=== PATIENT | male | born 1990 | race American Indian/Alaskan Native ===

== ENCOUNTER 2023-07-25 13:30 | Outpatient (CLI) | payer MEDICAID | END 2023-07-25 13:45 | disposition home or self-care (01) | LOC: LAB.N 13:30 | PROVIDERS: ATTEND Family Medicine | DX: Z20.1 Contact with and (suspected) exposure to tuberculosis (principal) | CPT/HCPCS: 81599; 86480 ==

== ENCOUNTER 2023-08-12 15:59 | Outpatient (CLI) | payer MEDICAID ==
--- NOTE | 2023-08-12 17:19 | XRAY Report ---
PROCEDURE: Chest 2 View X-Ray INDICATIONS: POSSIBLE TB TECHNIQUE: 2 views of the chest were acquired. COMPARISON: None. FINDINGS: Surgical changes and devices: None. Lungs and pleura: No pleural effusions or pneumothorax. Lungs are clear. Mediastinum: Mediastinal contours appear normal. No adenopathy demonstrated. Heart size is normal. Bones and chest wall: No suspicious bony lesions. Overlying soft tissues appear unremarkable. IMPRESSION: No acute cardiopulmonary process. No adenopathy demonstrated. Reviewed by: Raudel River MD on 08/12/2023 5:18 PM PST Approved by: Raudel River MD on 08/12/2023 5:18 PM PST Station ID: [id number]
== END 2023-08-12 16:00 | disposition home or self-care (01) ==
LOC: DI 15:59
PROVIDERS: ATTEND Emergency Medicine
DX: Z11.1 Encounter for screening for respiratory tuberculosis (principal)

== ENCOUNTER 2025-06-12 16:56 | Inpatient (IN) ==
[2025-06-12] MEDS: HYDROmorphone 1 MG/ML CARPUJECT IVP STA (18:13)
[2025-06-12 18:14] LABS: HCT - HEMATOCRIT 42.6 % (42.0-52.0); HGB - HEMOGLOBIN 14.4 g/dL (14.0-18.0); MEAN PLATELET VOLUME 10.4 fL (7.4-11.4); NRBC ABSOLUTE COUNT (AUTO) 0.00 x10^3/uL; NUCLEATED RED BLOOD CELLS AUTO 0.0 /100WBC; PLT - PLATELET COUNT 292 10^3/uL (130-450); RED CELL DISTRIBUTION WIDTH 11.4 % (12.0-15.0)
--- NOTE | 2025-06-12 18:16 | ED Physician Documentation ---
History of Present Illness Stated complaint Stated Complaint: Chief complaint Chief Complaint: Wound History obtained from History obtained from: Patient History of Present Illness Pain level max: 7 Pain level now: 7 Additonal information Additional information: Patient is a 34-year-old male who presents to the emergency department complaint of swelling to the right side of the scrotum. He states it started as a small pimple a few days ago and since has progressed into significant swelling on the right side of the scrotum, now with 2 distinct indurated areas. No current drainage. Nothing makes it better or worse. He states he went to the walk-in clinic and was started on cephalexin but is not improving. He is also on metfor min, history of diabetes. Review of Systems Constitutional Denies: Fever or Chills Gastrointestinal Denies: Abdominal pain or Vomiting Genitourinary Denies: Painful urination Musculoskeletal Denies: Back pain Meds/Allgy Home Medications Ambulatory Orders Medication Instructions Recorded Confirmed cephalexin 500 mg capsule 500 mg PO TID 7 days #21 cap s 06/10/25 06/12/25 metformin 1,000 mg tablet 1,000 mg PO DAILY 06/12/25 0 06/12/25 Allergies Allergies Allergy/AdvReac Type Severity Reaction Status Date / Time Anesthesia Allergy Unknown "Muscle Uncoded 06/12/25 17:01 Spasms" PFSH Active Problems All Active Problems (Updated 06/12/25 @ 17:55 by Rickie Turner RN) Cellulitis (Acute) Medical History Medical History (Updated 06/12/25 @ 17:55 by Rickie Turner RN) DM2 (diabetes mellitus, type 2) Surgical History Surgical History (Updated 06/12/25 @ 17:55 by Rickie Turner RN) Hx of cholecystectomy Social History Social History (Updated 06/12/25 @ 17:55 by Rickie Turner RN) Smoking Status: Current every day smoker Number of Years Smoked: 3 How many cigarettes a day do you smoke? (20 cigarettes=1 Pk): 2 Do you dip or chew tobacco?: No Do you vape?: No Living arrangement: At home Level: Independent Do you feel safe in your home environment?: Yes History of physical, verbal, emotional, or financial abuse?: No ETOH Use: None Substance Use: cannabis (any form) POLST Patient has POLST: No Exam Exam Vital Signs: Vital Signs x48h Temp Pulse Resp BP Pulse Ox 06/12/25 18:41 91 16 174/93 H 96 06/12/25 17:52 95 16 174/93 H 98 06/12/25 16:59 36.8 C 110 H 18 139/89 H 97 Constitutional normal general appearance and no apparent distress HENMT oropharynx normal moist mucous membranes Eyes PERRL Neck/C-Spine visual inspection normal Respiratory breath sounds equal bilaterally, normal respiratory effort and clear to auscultation bilaterally Cardiovascular normal heart rate noted and regular rhythm noted Gastrointestinal abdomen normal to inspection, abdomen soft to palpation, nontender to palpation and nondistended Genitourinary no CVA tenderness Tenderness to palpation over the right hemiscrotum, swelling, erythema, induration approximately 4 x 7 cm and 3 x 3 cm. No crepitus. No erythema on the leg. Penile shaft is unaffected. Extremities no edema Neurology speech normal Psychiatry mental status grossly normal and oriented x3 Skin skin color normal Results Vitals Vitals: Vital Signs - 24 hr 06/12/25 16:59 06/12/25 17:52 06/12/25 18:13 Temperature 36.8 C Temperature Source Temporal Artery Scan Pulse Rate 110 H 95 Respiratory Rate 18 16 Blood Pressure 139/89 H 174/93 H O2 Saturation 97 98 O2 Source Room air Room air Pain Intensity 10 10 10 06/12/25 18:39 06/12/25 18:41 Temperature Temperature Source Pulse Rate 91 Respiratory Rate 16 Blood Pressure 174/93 H O2 Saturation 96 O2 Source Room air Pain Intensity 4 4 Oxygen O2 Source Room air Labs Labs: Laboratory Tests 06/12/25 18:05 WBC 17.7 H RBC 5.11 Hgb 14.4 Hct 42.6 MCV 83.4 MCH 28.2 MCHC 33.8 RDW 11.4 L Plt Count 292 MPV 10.4 Neut # (Auto) 15.4 H Lymph # (Auto) 1.1 L [place] # (Auto) 1.1 H Eos # (Auto) 0.0 Baso # (Auto) 0.0 Absolute Nucleated RBC 0.00 Nucleated RBC % 0.0 Sodium 129 L Potassium 4.0 Chloride 93 L Carbon Dioxide 25 Anion Gap 11.0 BUN 11 Creatinine 0.8 Estimated GFR (MDRD) 109 Glucose 371 H Calcium 9.3 Total Bilirubin 0.6 AST 8 L ALT 10 Alkaline Phosphatase 93 Total Protein 7.7 Albumin 3.9 Globulin 3.8 Albumin/Globulin Ratio 1.0 PD Medical Decision Making ED course Complexity details: reviewed results, re-evaluated patient, considered differential and d/w patient ED course: 34-year-old male with scrotal swelling, induration and erythema. CT scan and ultrasound ordered. Concern for possible necrotizing fasciitis/Meg's gangrene. Patient is signed out to Dr. Ardon. Patient was started on Rocephin and vancomycin. Given Dilaudid for pain. See her note for further care. This document was made in part using voice recognition software. While efforts are made to proofread this document, sound alike and grammatical errors may occur. Discharge Plan Discharge Prescriptions: No Action metformin 1,000 mg tablet 1,000 mg PO DAILY cephalexin 500 mg capsule 500 mg PO TID 7 Days Qty: 21 0RF Print Language: Comoran Stand Alone Forms: PCP List
[2025-06-12 18:32] LABS: ALT ALANINE AMINOTRANSFERASE 10.0 IU/L (10-60); AST ASPARTATE AMINOTRANSFERASE 8.0 IU/L (10-42); BUN - BLOOD UREA NITROGEN 11.0 mg/dL (6-20); CARBON DIOXIDE - CO2 25.0 mmol/L (21-32); CREATININE 0.8 mg/dL (0.6-1.3); GFR - MDRD 109.0 (>89)
[2025-06-12] MEDS: SODIUM CHLORIDE 0.9% 1,000 ML IV STA (18:39)
--- NOTE | 2025-06-12 19:28 | CT Report ---
PROCEDURE: CT Pelvis W INDICATIONS: scrotal swelling, pain CONTRAST: Omni 300 100mL TECHNIQUE: After the administration of intravenous contrast, a CT scan of the pelvis was performed. Images were recorded and evaluated at appropriate window settings. Reformats: axial MIP of the chest, coronal and sagittal. For radiation dose reduction, the following was used: automated exposure control, adjustment of mA and/or kV according to patient size. COMPARISON: None FINDINGS: Image quality: Diagnostic. Bowel and peritoneum: No bowel distension. No pathologic free fluid. Vessels: No infrarenal aortic aneurysm. Reproductive organs: Unremarkable. Bladder: There is mild circumferential urinary bladder wall thickening greater than expected for degree of urinary bladder distention. Pelvic lymph nodes: No pelvic adenopathy by size criteria. Bones: No aggressive osseous abnormality. Other: Very small fat-containing left inguinal hernia without acute inflammation. Moderate-sized bilateral hydroceles. Mild scrotal soft tissue swelling. No organized fluid collection seen. IMPRESSION: Circumferential urinary bladder wall thickening greater than expected for degree of distention. Findings may represent possible cystitis. Recommend clinical and laboratory correlation. Moderate bilateral hydroceles and scrotal soft tissue swelling. No organized fluid collection or soft tissue gas noted. Reviewed by: Shyam Abernathy MD on 06/12/2025 7:26 PM PDT Approved by: Shyam Abernathy MD on 06/12/2025 7:26 PM PDT Station ID: [id number]
[2025-06-12] MEDS: PIPERACILLIN/TAZOBACTAM 4.5 GM in SODIUM CHLORIDE 0.9% MINIBAG 100 ML IV STA (19:37)
[2025-06-12] MEDS ORDERED: VANCOMYCIN 1 GM VIAL ONE (20:12)
[2025-06-12] MEDS: VANCOMYCIN INJ 1.5 GM in SODIUM CHLORIDE 0.9% 500 ML IV ONE (20:33)
[2025-06-12] MEDS: MORPHINE 2 MG/ML CARPUJECT IVP STA (20:58)
--- NOTE | 2025-06-12 21:01 | Ultrasound Report ---
PROCEDURE: US Testicle w/Doppler INDICATIONS: R scrotal swelling TECHNIQUE: Real-time scanning was performed of the scrotum and testicles, with image documentation. Color and pulse Doppler interrogation was performed of both testicles. COMPARISON: None. FINDINGS: Right: Testicle is normal in size at 5.0 x 2.5 x 3.2 cm, and homogenous in echotexture. Epididymis is normal in overall size and morphology. No hydrocele. No varicoceles. Overlying scrotal skin is normal in thickness. Left: Testicle is normal in size at 4.5 x 2.6 x 3.2 cm, and homogeneous in echotexture. Epididymis is normal in overall size and morphology. No hydrocele. No varicoceles. Overlying scrotal skin is normal in thickness. Doppler: Color and pulse Doppler demonstrate normal and symmetric arterial flow in both testicles. Miscellaneous: Area of concern in the posterior right scrotum demonstrates a 1.7 x 3.4 x 4.3 cm focus of heterogeneous echogenicity. Mild appearance of increased vascularity. IMPRESSION: Focus of heterogeneous echogenicity at the area of palpable concern as above.This may represent phlegmon/abscess. However, it is overall nonspecific in etiology such as hematoma cannot be excluded. Clinical follow-up to document resolution and exclude presence of underlying mass is recommended. Reviewed by: Lesvia Parekh MD on 06/12/2025 9:00 PM PDT Approved by: Lesvia Parekh MD on 06/12/2025 9:00 PM PDT Station ID: [id number]
[2025-06-12] MEDS ORDERED: ONDANSETRON 4 MG/2 ML VIAL IVP PRN (22:27)
--- NOTE | 2025-06-12 22:32 | ED Physician Documentation ---
ED Addendum Addendum Addendum: Patient endorsed to me by Dr. stephens at 7pm shift change. He has R scrotal abscess that Dr. Pimentel will drain in AM. no beds available so he will board in the ED. plan to endorse to incoming daytime ed md at 7am shift change Discharge Plan Discharge Prescriptions: No Action metformin 1,000 mg tablet 1,000 mg PO DAILY cephalexin 500 mg capsule 500 mg PO TID 7 Days Qty: 21 0RF Print Language: Croatian Stand Alone Forms: PCP List
[2025-06-12] MEDS: MORPHINE 2 MG/ML CARPUJECT IVP PRN (23:08)
[2025-06-12] MEDS: ACETAMINOPHEN 325 MG TABLET PO STA (23:11)
[2025-06-12] MEDS: INSULIN REGULAR, HUMAN 300 UNIT/3 ML PEN SUBQ STA (23:14)
[2025-06-12] MEDS: INSULIN REGULAR, HUMAN 300 UNIT/3 ML PEN IVP STA (23:19)
[2025-06-12] MEDS: LORazepam 2 MG/ML VIAL IVP STA (23:26)
[2025-06-13 06:07] LABS: HCT - HEMATOCRIT 39.3 % (42.0-52.0); HGB - HEMOGLOBIN 13.4 g/dL (14.0-18.0); MEAN PLATELET VOLUME 10.5 fL (7.4-11.4); PLT - PLATELET COUNT 278 10^3/uL (130-450); RED CELL DISTRIBUTION WIDTH 11.4 % (12.0-15.0)
[2025-06-13 06:09] LABS: SLIDE REVIEW? Indicated
[2025-06-13 06:10] LABS: ABNORMAL LYMPHS % (MANUAL) 0 %; BASOPHILS # (MANUAL) 0.0 10^3/uL (0-0.1)
[2025-06-13 06:37] LABS: BUN - BLOOD UREA NITROGEN 10.0 mg/dL (6-20); CARBON DIOXIDE - CO2 25.0 mmol/L (21-32); CREATININE 0.8 mg/dL (0.6-1.3); GFR - MDRD 109.0 (>89)
[2025-06-13 07:04] LABS: BAND NEUTROPHILS % (MANUAL) 3 %; EOSINOPHILS # (MANUAL) 0.4 10^3/uL (0-0.7); LYMPHOCYTES # (MANUAL) 1.9 10^3/uL (1.5-3.5); LYMPHOCYTES % (MANUAL) 7 %; MONOCYTES # (MANUAL) 1.5 10^3/uL (0.0-1.0); NEUTROPHILS # (MANUAL) 15.4 10^3/uL (1.5-6.6); RBC MORPHOLOGY (MULTIPLE) 1+ ANISOCYTOSIS (NORMAL); REACTIVE LYMPHS % (MANUAL) 3 %
[2025-06-13 07:05] LABS: PLATELET ESTIMATE, MANUAL NORMAL (130-450,000) (NORMAL)
--- NOTE | 2025-06-13 07:12 | ED Physician Documentation ---
ED Addendum Addendum Addendum: Patient was handed off to me at [address] Ardon. Briefly, this patient is boarding in the ER awaiting urology evaluation, as well as likely I&D with urology today for a right scrotal abscess. Shortly after my shift began, urology did come by and evaluate this patient, and elected to perform this procedure today. He remained in the ER until he was transferred to preoperative area. Patient required no further interventions in the ER during my care for him. Remained stable. Discharge Plan Discharge Patient Disposition: ED Transfer to [facility] Condition: Stable Clinical Impression: Scrotal abscess Interventions: ED Admission Assessment Last Done: 06/13/25 10:02
--- NOTE | 2025-06-13 07:44 | HISTORY & PHYSICAL EXAMINATION ---
Chief Complaint Chief Complaint Chief Complaint: scrotal abscess History of Present Illness Admitted From Admitted From:: ER History Obtained From Records Reviewed: patient, EMR History obtained from: patient Exam Limitations: none History of Present Illness HPI Comment/Other: Erik is a 34yo M with type 2 DM- poorly controlled- who presented to the ER 06/12/25 with worsening scrotal pain and swelling. He first noted a "pimple" on his scrotum a week ago and popped it. The swelling worsened and he went to walkin 06/10/25 and was started on keflex. Unfortunately the swelling worsened. He has had subjective fevers at home. Colonoscopy Questionnaire In the last 30 days have you experienced these symptoms? PFSH Active Problems All Active Problems (Updated 06/13/25 @ 08:18 by Radhames Pimentel MD) Scrotal abscess (Acute) Cellulitis (Acute) Medical History Medical History (Updated 06/13/25 @ 08:18 by Radhames Pimentel MD) DM2 (diabetes mellitus, type 2) Surgical History Surgical History (Updated 06/12/25 @ 17:55 by Rickie Turner RN) Hx of cholecystectomy Social History Social History (Updated 06/12/25 @ 17:55 by Rickie Turner RN) Smoking Status: Current every day smoker Number of Years Smoked: 3 How many cigarettes a day do you smoke? (20 cigarettes=1 Pk): 2 Do you dip or chew tobacco?: No Do you vape?: No Living arrangement: At home Level: Independent Do you feel safe in your home environment?: Yes History of physical, verbal, emotional, or financial abuse?: No ETOH Use: None Substance Use: cannabis (any form) POLST Patient has POLST: No Meds/Allgy Home Medications Ambulatory Orders Medication Instructions Recorded Confirmed cephalexin 500 mg capsule 500 mg PO TID 7 days #21 cap s 06/10/25 06/12/25 metformin 1,000 mg tablet 1,000 mg PO DAILY 06/12/25 0 06/12/25 Allergies Allergies Allergy/AdvReac Type Severity Reaction Status Date / Time Anesthesia Allergy Unknown "Muscle Uncoded 06/12/25 17:01 Spasms" Results Lab Results Lab results reviewed: Yes 06/13/25 05:49 06/13/25 05:49 Other Lab Results: Lab Results x24hrs 06/12/25 Range/Units 18:05 WBC 17.7 H (4.8-10.8) x10^3/uL RBC 5.11 (4.70-6.10) 10^6/uL Hgb 14.4 (14.0-18.0) g/dL Hct 42.6 (42.0-52.0) % MCV 83.4 (80.0-94.0) fL MCH 28.2 (27.0-31.0) pg MCHC 33.8 (32.0-36.0) g/dL RDW 11.4 L (12.0-15.0) % Plt Count 292 (130-450) 10^3/uL MPV 10.4 (7.4-11.4) fL Neut # (Auto) 15.4 H (1.5-6.6) 10^3/uL Lymph # (Auto) 1.1 L (1.5-3.5) 10^3/uL [place] # (Auto) 1.1 H (0.0-1.0) 10^3/uL Eos # (Auto) 0.0 (0.0-0.7) 10^3/uL Baso # (Auto) 0.0 (0.0-0.1) 10^3/uL Absolute Nucleated RBC 0.00 x10^3/uL Nucleated RBC % 0.0 /100WBC Sodium 129 L (135-145) mmol/L Potassium 4.0 (3.5-4.5) mmol/L Chloride 93 L (101-111) mmol/L Carbon Dioxide 25 (21-32) mmol/L Anion Gap 11.0 (6-13) BUN 11 (6-20) mg/dL Creatinine 0.8 (0.6-1.3) mg/dL Estimated GFR (MDRD) 109 (>89) Glucose 371 H (74-104) mg/dL Calcium 9.3 (8.5-10.3) mg/dL Total Bilirubin 0.6 (0.2-1.0) mg/dL AST 8 L (10-42) IU/L ALT 10 (10-60) IU/L Alkaline Phosphatase 93 (42-121) IU/L Total Protein 7.7 (6.4-8.9) g/dL Albumin 3.9 (3.2-5.5) g/dL Globulin 3.8 (2.1-4.2) g/dL Albumin/Globulin Ratio 1.0 (1.0-2.2) Diagnostic Imaging Results Diagnostic Imaging Results: positive Read independently Exam Exam Vital Signs: Vital Signs x48h Temp Pulse Resp BP Pulse Ox 06/12/25 20:00 89 18 158/95 H 97 06/12/25 18:41 91 16 174/93 H 96 06/12/25 17:52 95 16 174/93 H 98 06/12/25 16:59 36.8 C 110 H 18 139/89 H 97 RRR CTA b/l scrotal fluctuant area to right lateral scrotum, about 6cm in length, tender. no crepitance Impression/Plan Problem List (1) Scrotal abscess: Plan: Poorly controlled diabetic with scrotal wall abscess -NPO/IVF at midnight -add on for scrotal incision and drainage. The risks, benefits and alternatives were discussed. specific risks of: infection, poor wound healing, bleeding, pain, anesthesia risks were discussed
[2025-06-13] MEDS: LACTATED RINGERS 1,000 ML IV PRN (10:22)
[2025-06-13] MEDS ORDERED: MORPHINE 2 MG/ML CARPUJECT IVP PRN ×2 (10:43→13:55)
[2025-06-13] MEDS: MORPHINE 2 MG/ML CARPUJECT IVP PRN (10:49)
--- NOTE | 2025-06-13 12:00 | ANESTHESIA PROCEDURE NOTE ---
Pre-Anesthesia VS, & Labs Diagnosis Surgical Diagnosis:: scrotal abscess Procedure Procedure: I&D of scrotal abscess Vitals Vital Signs: Temp Pulse Resp BP Pulse Ox 37.4 C 98 18 139/73 H 95 06/13/25 10:32 06/13/25 10:52 06/13/25 10:52 06/13/25 10:32 06/13/25 10:52 NPO NPO: >8 hours Lab Results Current Lab Results: Laboratory Tests 06/13/25 10:26: POC Whole Bld Glucose 220 06/13/25 05:49: WBC 19.3 H, RBC 4.71, Hgb 13.4 L, Hct 39.3 L, MCV 83.4, MCH 28.5, MCHC 34.1, RDW 11.4 L, Plt Count 278, MPV 10.5, Neut # (Auto) Not Reportable, Lymph # (Auto) Not Reportable, [place] # (Auto) Not Reportable, Eos # (Auto) Not Reportable, Baso # (Auto) Not Reportable, Absolute Nucleated RBC Not Reportable, Total Counted 100, Band Neuts % (Manual) 3, Reactive Lymphs % (Man) 3, Abnorm Lymph % (Manual) 0, Nucleated RBC % Not Reportable, Neutrophils # (Manual) 15.4 H, Lymphocytes # (Manual) 1.9, Monocytes # (Manual) 1.5 H, Eosinophils # (Manual) 0.4, Basophils # (Manual) 0.0, Differential Comment MANUAL DIFFERENTIAL, Manual Slide Review Indicated, Platelet Estimate NORMAL (130-450,000), RBC Morph Micro Appear 1+ ANISOCYTOSIS, Sodium 132 L, Potassium 4.2, Chloride 99 L, Carbon Dioxide 25, Anion Gap 8.0, BUN 10, Creatinine 0.8, Estimated GFR (MDRD) 109, Glucose 241 H, Calcium 8.7 06/12/25 23:14: POC Whole Bld Glucose 300 06/12/25 18:05: WBC 17.7 H, RBC 5.11, Hgb 14.4, Hct 42.6, MCV 83.4, MCH 28.2, MCHC 33.8, RDW 11.4 L, Plt Count 292, MPV 10.4, Neut # (Auto) 15.4 H, Lymph # (Auto) 1.1 L, [place] # (Auto) 1.1 H, Eos # (Auto) 0.0, Baso # (Auto) 0.0, Absolute Nucleated RBC 0.00, Nucleated RBC % 0.0, Sodium 129 L, Potassium 4.0, Chloride 93 L, Carbon Dioxide 25, Anion Gap 11.0, BUN 11, Creatinine 0.8, Estimated GFR (MDRD) 109, Glucose 371 H, Calcium 9.3, Total Bilirubin 0.6, AST 8 L, ALT 10, Alkaline Phosphatase 93, Total Protein 7.7, Albumin 3.9, Globulin 3.8, Albumin/Globulin Ratio 1.0 Lab results reviewed: Yes 06/13/25 05:49 06/13/25 05:49 Meds/Allgy Home Medications Ambulatory Orders Medication Instructions Recorded Confirmed metformin 1,000 mg tablet 1,000 mg PO DAILY 06/12/25 0 06/13/25 Allergies Allergies Allergy/AdvReac Type Severity Reaction Status Date / Time Anesthesia Allergy Unknown "Muscle Uncoded 06/13/25 10:11 Spasms" PFSH Active Problems All Active Problems Scrotal abscess (Acute) Cellulitis (Acute) Medical History Medical History DM2 (diabetes mellitus, type 2) Surgical History Surgical History Hx of cholecystectomy Social History Social History Smoking Status: Current every day smoker Number of Years Smoked: 3 How many cigarettes a day do you smoke? (20 cigarettes=1 Pk): 2 Do you dip or chew tobacco?: No Do you vape?: No Living arrangement: At home Level: Independent Do you feel safe in your home environment?: Yes History of physical, verbal, emotional, or financial abuse?: No ETOH Use: None Substance Use: cannabis (any form) POLST Patient has POLST: No Anesthesia Exam (Expanded) Exam General: Alert, Oriented x3 and Cooperative Dental: WNL Mouth Openin Fingerbreadth Neck Mobility: Normal Mallampati classification: III Thyromental Distance: 4-6 cm Respiratory: Lungs clear Cardiovascular: Regular rate, Normal S1 and Normal S2 Exam Exam Vital Signs: Vital Signs x48h Temp Pulse Resp BP Pulse Ox 06/13/25 10:52 98 18 95 06/13/25 10:32 37.4 C 97 19 139/73 H 96 06/13/25 08:00 37.8 C 99 18 154/80 H 98 06/13/25 06:00 87 18 136/75 H 94 Plan Plan Anesthesia Type: General Consent for Procedure(s) Verified and Reviewed: Yes Code Status: Attempt Resuscitation ASA Classification ASA classification: 2-Mild systemic disease Is this case an emergency?: No
[2025-06-13] MEDS ORDERED: PROPOFOL 200 MG/20 ML VIAL IVP ONE (12:14)
[2025-06-13] MEDS ORDERED: MIDAZOLAM 2 MG/2 ML VIAL ONE (12:14)
[2025-06-13] MEDS ORDERED: fentaNYL 100 MCG/2 ML VIAL ONE ×2 (12:14→13:36)
[2025-06-13] MEDS ORDERED: SEVOFLURANE 250 ML LIQUID INH ONE (12:18)
[2025-06-13] MEDS ORDERED: SODIUM CHLORIDE 0.9% MINIBAG 100 ML IV ONE (12:30)
[2025-06-13] MEDS ORDERED: HYDROmorphone 1 MG/ML CARPUJECT ONE (13:10)
[2025-06-13] MEDS ORDERED: ONDANSETRON 4 MG/2 ML VIAL ONE (13:20)
[2025-06-13] MEDS ORDERED: KETOROLAC 30 MG/ML VIAL ONE (13:20)
[2025-06-13] MEDS ORDERED: CLINDAMYCIN 900 MG/50 ML 900 MG/50 ML BAG IV ONE (13:23)
[2025-06-13] MEDS ORDERED: fentaNYL 100 MCG/2 ML VIAL IVP PRN (13:55)
[2025-06-13] MEDS ORDERED: HYDROmorphone 0.5 MG/0.5 ML SYRINGE IVP PRN (13:55)
[2025-06-13] MEDS ORDERED: NALOXONE 0.4 MG/ML VIAL IVP PRN (13:55)
[2025-06-13] MEDS ORDERED: ATROPINE ABBOJECT 1 MG/10 ML SYRINGE IVP PRN (13:55)
[2025-06-13] MEDS ORDERED: ONDANSETRON 4 MG/2 ML VIAL IVP PRN ×2 (13:55→14:16)
[2025-06-13] MEDS ORDERED: SODIUM CHLORIDE FLUSH 0.9% 10 ML SYRINGE IVP PRN (14:16)
--- NOTE | 2025-06-13 14:16 | ANESTHESIA POST OP EVALUATION ---
Anesthesia Post Eval Post Anesthesia Eval Vitals: Last Vital Signs Temp 36.0 C L 06/13/25 14:12 Pulse 92 06/13/25 14:12 Resp 19 06/13/25 14:12 BP 117/58 L 06/13/25 14:12 Pulse Ox 100 06/13/25 14:12 CV Function Including HR & BP: Stable Pain Control: Satisfactory Nausea & Vomiting: Negative Mental Status: Baseline Respiratory Status: Airway Patent Hydration Status: Satisfactory Anesthesia Complications: None
--- NOTE | 2025-06-13 14:18 | OPERATIVE REPORT ---
Operative Report General Procedure Data: Operation Date: 06/13/25 14:00 Proposed Procedures p Incision and Drainage Scrotum(Not Applicable) - Radhames Pimentel MD Actual Procedures p Incision and Drainage Scrotum(Not Applicable) - Radhames Pimentel MD Pre-Op Diagnosis: scrotal wall abscess Anesthesia Type General Case Staff Anesthesia Provider: Sumi Monahan Times Into Recovery: 06/13/25 13:47 Procedure Start: 06/13/25 13:10 Procedure End: 06/13/25 13:40 Time out: 06/13/25 13:10 Pre-Op Diagnosis: scrotal abscess Post Op Diagnosis: fourniers gangrene Procedure Note Estimated Blood Loss (ml): 10 Pathology: Wound cultures Scrotal wall tissue Findings: necrotic appearing brown tissue in perineum Complications: none Other Other Information/Narrative: After informed consent was obtained the patient was brought to the OR and laid in the supine position. The patient was anesthetized per anesthesia protocols and prepped and draped in usual sterile fashion. He had a indurated and edematous right hemiscrotum which extended down his right perineum. There were no concerns on the left side A formal timeout was performed reconfirming the patient and procedure. The most anterior portion of the indurated tissue was about the mid scrotum on the lateral side. A 2 cm incision was made and this was dissected down but only edematous tissue was identified without any purulence. We then decided to make a counterincision more inferiorly and dorsally a small incision was made in the inferior right lateral scrotum near the perineum and we can see an immediate release of copious foul-smelling milky brown fluid. Culture swabs were sent for analysis. We gently probed this area with Metzenbaum scissors and could see that there was a large pocket extending inferiorly down to the perineum this was opened up using sharp dissection approximately 10 cm straight back towards the perineum. A large amount of purulent material was released. We explored the abscess pocket and could see that there was necrotic appearing tissue. We debrided this. There was only healthy tissue remaining after our debridement. We did send a portion of it as a specimen. We explored this abscess cavity as we were concerned this was early Meg's gangrene given the look of the necrotic appearing scrotal wall tissue. We irrigated the wound out copiously with saline. We also asked for clindamycin to be added to his IV antibiotics. We inspected the abscess cavity in depth and all necrotic debris was gone. There were no other palpable areas of concern and so we used spot cautery for any bleeding areas and then packed the wound with iodinated gauze and iodinated tape. In the small anterior incision we used iodinated tape. In the larger incision we used a Curlex which was soaked with saline and iodine. We then covered the incision with an ABD pad and tape This concluded the procedure and the patient tolerated the procedure well. He was brought to the PACU without further incident. He will be admitted to the hospitalist team for further management and he will undergo secondary debridement in 1 to 2 days time.
[2025-06-13] MEDS: LACTATED RINGERS 1,000 ML IV SCH (14:40)
[2025-06-13] MEDS: PIPERACILLIN/TAZOBACTAM 3.375 GM in SODIUM CHLORIDE 0.9% MINIBAG 100 ML IV ONE (15:47)
[2025-06-13] MEDS ORDERED: PIPERACILLIN/TAZOBACTAM 3.375 GM in SODIUM CHLORIDE 0.9% MINIBAG 100 ML IV SCH (17:00)
--- NOTE | 2025-06-13 17:27 | HISTORY & PHYSICAL EXAMINATION ---
Chief Complaint Chief Complaint Chief Complaint: scrotal pain History of Present Illness Admitted From Admitted From:: ED, PACU History Obtained From Records Reviewed: EHR History obtained from: pt Exam Limitations: none History of Present Illness HPI Comment/Other: 34 yo M with pmhx of DM2 on metformin who presented with R scrotal pain and swelling. He stated it started as a pimple that popped, then grew and became very painful. He went to the walk in clinic on 06/10/25 and was prescribed cephalexin, which he took and stated it did not help. He came back to the ED on 06/12/25 and was diagnosed with R scrotal abscess. He was given pip-tazo and vancomycin. Urology (Dr. Pimentel) took him to the OR today and found meg gangrene. Regarding his DM, he was diagnosed at age 20 with DM2. Used to weigh 330 lbs. Was on a basal-bolus insulin regimen 3 years ago that included lantus 10 units q day. Since then he had not had insurance and has been taking only metformin once daily. Never on SGLT2i. Denies any h/o skin infections, but did not a severe R ear infection and nasal polyps when he was a child. After arriving to the floor from PACU he feels great. Minimal pain. No n/v. No BM. Wants to eat. 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 (20 cigarettes=1 Pk): 1 Do you dip or chew tobacco?: No Do you vape?: No Living arrangement: At home Level: Independent Do you feel safe in your home environment?: Yes History of physical, verbal, emotional, or financial abuse?: No ETOH Use: None Substance Use: cannabis (any form) POLST Patient has POLST: No Review of Systems Status of ROS: 10 or more systems reviewed and unremarkable except as noted in history and below Exam Exam Vital Signs: Vital Signs x48h Temp Pulse Pulse Resp BP BP Pulse Ox 06/13/25 15:45 36.7 C 95 22 127/70 96 06/13/25 15:37 37.5 C 94 20 126/69 98 06/13/25 14:51 37.2 C 98 16 122/70 97 06/13/25 14:51 92 16 122/70 97 06/13/25 14:30 124/66 06/13/25 14:30 37.4 C 62 20 124/66 96 06/13/25 14:15 117/60 06/13/25 14:12 36.0 C L 92 19 117/58 L 100 06/13/25 14:10 95 26 H 117/58 L 98 06/13/25 14:08 36.1 C L 90 25 H 123/59 L 99 06/13/25 14:05 90 26 H 123/59 L 99 06/13/25 14:01 90 22 116/57 L 100 06/13/25 14:00 91 16 116/57 L 100 06/13/25 13:55 88 13 107/56 L 100 06/13/25 13:55 90 18 107/56 L 100 06/13/25 13:50 91 13 103/54 L 100 06/13/25 13:50 36.7 C 92 14 103/53 L 100 06/13/25 13:49 92 15 106/61 99 06/13/25 13:47 36.1 C L 91 16 106/61 99 06/13/25 12:00 141/68 H 06/13/25 11:00 101 H 18 148/73 H 95 06/13/25 10:53 96 21 146/72 H 95 06/13/25 10:52 98 18 95 06/13/25 10:32 37.4 C 97 19 139/73 H 96 06/13/25 10:30 92 10 L 139/73 H 96 06/13/25 10:15 103 H 23 146/73 H 96 06/13/25 10:10 97 15 140/73 H 96 young man lying in bed, NAD, sclera anicteric, MMM LCTAB, nonlabored RRR, S1S2, no edema abd soft, NT, Nd, BS+ : dressing with serous soaking, no erythema on legs AAOx3, strength 5/5 UE and LE bilat, normal tone, no tremor Conclusion/Plan Problem List (1) 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 Meg's gangrene R scrotum: pt afebrile since arrival, wbc 17.7-> 19. Discussed case with Dr. Pimentel today. - vancomycin, pip-tazo, clindamycin - f/u OR wound cx - oxycodone prn, iv morphine for dressing changes - dressing changes per Dr. Pimentel - plan repeat OR for debridement this week 2. DM2, uncontrolled with hyperglycemia: Glu on admission 371-> 280 this afternoon. Home regimen: metformin. - hold metformin - lantus 8 units q hs - SSI TID - obtain A1c in am dvt ppx: lovenox Dispo: Came from home. Pending treatment of infection and plan for po abx, likely 2-3 days. Lab Results Lab results reviewed: Yes 06/13/25 05:49 06/13/25 05:49
[2025-06-13] MEDS: VANCOMYCIN INJ 1 GM, VANCOMYCIN INJ 500 MG in SODIUM CHLORIDE 0.9% 500 ML IV SCH (17:40)
[2025-06-13] MEDS: SODIUM CHLORIDE FLUSH 0.9% 10 ML SYRINGE IVP SCH (17:40)
[2025-06-13] MEDS: PIPERACILLIN/TAZOBACTAM 3.375 GM in SODIUM CHLORIDE 0.9% MINIBAG 100 ML IV SCH (17:54)
--- NOTE | 2025-06-13 18:07 | PHARMACY PROGRESS NOTE ---
Best Possible Medication History Admit Date and Time: Home Medications Medication Instructions Recorded Confirmed Type metformin 1,000 mg tablet 1,000 mg PO DAILY 06/12/25 0 06/13/25 History Processed by: Pharmacy (Medication reconciliation completed by Business And Services Instructor, Nilsa) Medications reviewed in ED?: No Medication History completed: Yes Patient Interview: Completed [facility] Statement: As the person ultimately responsible for medication therapy, providers are able to order a medication from an existing home medication list in [facility] via the "Reconcile Routine" prior to Confirmation of that medication by microcomputer support specialist. Such practice is discouraged except when the physician, in their clinical judgment, deems that a medical need exists for a medication without regard to previous use.
--- NOTE | 2025-06-13 18:38 | PHARMACY PROGRESS NOTE ---
Vancomycin Therapy Monitoring Vancomycin Therapy Goals Treatment Indication: Meg's gangrene Vancomycin Target Range: Vancomycin AUC Target Range 400-600 mcg*h/ml Plan: Vancomycin Loading Dose (GM, if applicable): 1500mg given last night in ER New Regimen (Enter new dose and interval): 1500mg q12h, anticipated AUC 434 Vancomycin Level Recommendation: Vancomycin Level Recommendation (after 4th or 5th dose)
[2025-06-13] MEDS: INSULIN LISPRO 300 UNIT/3 ML PEN SUBQ SCH (18:50)
[2025-06-13] MEDS ORDERED: CLINDAMYCIN 600 MG/50 ML 50 ML IV SCH (21:00)
[2025-06-13] MEDS: INSULIN REGULAR, HUMAN 300 UNIT/3 ML PEN SUBQ ONE (21:16)
[2025-06-13] MEDS: INSULIN GLARGINE-YFGN 300 UNIT/3 ML PEN SUBQ SCH (21:17)
[2025-06-13] MEDS: CLINDAMYCIN 900 MG/50 ML 900 MG/50 ML BAG IV SCH (21:18)
[2025-06-14] MEDS: ACETAMINOPHEN 325 MG TABLET PO PRN (01:09)
[2025-06-14] MEDS: SODIUM CHLORIDE 0.9% 500 ML IV PRN (02:34)
[2025-06-14 05:12] LABS: HCT - HEMATOCRIT 35.6 % (42.0-52.0); HGB - HEMOGLOBIN 12.4 g/dL (14.0-18.0); MEAN PLATELET VOLUME 10.0 fL (7.4-11.4); NRBC ABSOLUTE COUNT (AUTO) 0.00 x10^3/uL; NUCLEATED RED BLOOD CELLS AUTO 0.0 /100WBC; PLT - PLATELET COUNT 253 10^3/uL (130-450); RED CELL DISTRIBUTION WIDTH 11.6 % (12.0-15.0)
[2025-06-14 05:25] LABS: BUN - BLOOD UREA NITROGEN 10.0 mg/dL (6-20); CARBON DIOXIDE - CO2 27.0 mmol/L (21-32); CREATININE 0.7 mg/dL (0.6-1.3); GFR - MDRD 128.0 (>89)
[2025-06-14] MEDS: INSULIN LISPRO 300 UNIT/3 ML PEN SUBQ SCH (08:14)
[2025-06-14] MEDS: ENOXAPARIN 40 MG/0.4 ML SYRINGE SUBQ SCH (08:15)
[2025-06-14] MEDS: oxyCODONE 5 MG TABLET PO PRN (08:34)
[2025-06-14 09:42] LABS: ESTIMATED AVERAGE GLUCOSE 329 mg/dL (70-100); HEMOGLOBIN A1c% 13.1 % (4.27-6.07)
[2025-06-14] MEDS: MORPHINE 2 MG/ML CARPUJECT IVP PRN (11:54)
--- NOTE | 2025-06-14 12:37 | PROVIDER PROGRESS NOTE ---
Subjective Subjective Subjective: Today, patient states that he feels much better. He still has significant pain around the scrotum, but it is improving. He has had no fevers or chills. He states that has been noncompliant with his medicationspreviously, he was on insulin. However, he does not have any insurance right now, and is unable to afford it. Current Medications Current Medications Current Medications: Current Medications Generic Name Dose Route Start Last Admin Trade Name Freq PRN Reason Stop Dose Admin Acetaminophen 650 mg 06/13/25 14:16 06/14/25 05:28 Acetaminophen 325 Mg Tablet PO 650 mg Q4HR PRN Administration Pain 1 to 4, or Fever Enoxaparin Sodium 40 mg 06/14/25 09:00 06/14/25 08:15 Enoxaparin 40 Mg/0.4 Ml Syringe SUBQ 40 mg DAILY DK Administration Vancomycin HCl 1 gm/ 500 mls @ 250 mls/hr 06/13/25 17:00 06/14/25 05:16 Vancomycin HCl 500 mg/ Sodium IV 250 mls/hr Chloride Q12H DK Administration Piperacillin Sod/Tazobactam 100 mls @ 25 mls/hr 06/13/25 17:00 06/14/25 08:16 Sod 3.375 gm/ Sodium Chloride IV 25 mls/hr Q8H DK Administration Clindamycin/Sodium Chloride 900 mg in 50 mls @ 50 mls/hr 06/13/25 22:00 06/14/25 12:12 Cleocin 900 Mg/50 Ml IV Infused Q8HR DK Infusion Sodium Chloride 500 mls @ 0 mls/hr 06/14/25 02:19 06/14/25 02:34 Normal Saline 0.9% IV 20 mls/hr Q24H PRN Administration TKO RATE TKO Insulin Glargine-yfgn 8 unit 06/13/25 21:00 06/13/25 21:17 Insulin Glargine-Yfgn 300 Unit/3 Ml Pen SUBQ 8 unit QPM DK Administration Insulin Human Lispro 1 - 9 unit 06/14/25 08:00 06/14/25 12:11 Insulin Lispro 300 Unit/3 Ml Pen SUBQ 5 unit 0800,1200,1700,2100 DK Administration Protocol Morphine Sulfate 4 mg 06/13/25 16:41 06/14/25 11:54 Morphine 2 Mg/Ml Carpuject IVP 4 mg Q12H PRN Administration Severe Pain (Level 7-10) Ondansetron HCl 4 mg 06/12/25 22:27 Ondansetron 4 Mg/2 Ml Vial IVP Q6HR PRN Nausea / Vomiting Ondansetron HCl 4 mg 06/13/25 14:16 Ondansetron 4 Mg/2 Ml Vial IVP Q6HR PRN Nausea / Vomiting Oxycodone HCl 5 mg 06/13/25 14:16 06/14/25 08:34 Oxycodone 5 Mg Tablet PO 5 mg Q4HR PRN Administration Pain 8 to 10 Sodium Chloride 10 ml 06/13/25 14:16 Sodium Chloride Flush 0.9% 10 Ml Syringe IVP PRN PRN NEEDED PER PROVIDER ORDERS Sodium Chloride 10 ml 06/13/25 17:00 06/14/25 08:17 Sodium Chloride Flush 0.9% 10 Ml Syringe IVP 10 ml 0100,0900,1700 DK Administration Objective Vital Signs/Intake & Output Reviewed Vital Signs: Yes Vital Signs: Vital Signs x48h Temp Pulse Resp BP Pulse Ox 06/14/25 11:55 97.9 F 80 18 124/74 97 06/14/25 07:51 98.1 F 77 18 112/63 97 06/14/25 05:15 98.1 F 83 18 130/78 95 Intake & Output: Intake & Output 06/11/25 06/12/25 06/13/25 06/14/25 23:59 23:59 23:59 23:59 Intake Total 1600 / 1600 4890 / 4890 2440 / 2440 Output Total 2200 / 2200 Balance 1600 / 1600 4890 / 4890 240 / 240 Weight (kg) 107 kg 107 kg Objective General Appearance: positive No acute distress and Alert; negative Anxious Eyes Bilateral: positive Normal inspection, PERRL and EOMI ENT: positive ENT inspection nml, Pharynx nml and No signs of dehydration Neck: positive Nml inspection, Thyroid nml and No JVD Respiratory: positive Chest non-tender, No respiratory distress and Breath sounds nml; negative Wheezes, Rales or Rhonchi Cardiovascular: positive Regular rate & rhythm, No murmur and No gallop; negative Tachycardia or Systolic murmur Abdomen: positive Non-tender, No organomegaly and No distention; negative Guarding or Splenomegaly Back: positive Nml inspection; negative CVA tenderness (R) or CVA tenderness (L) Skin: positive Color nml, No rash, Warm and Dry Extremities: positive Non-tender, Full ROM, Nml appearance and No pedal edema Neurologic/Psychiatric: positive Oriented x3, Motor nml and Mood/affect nml Comments/Other: Right scrotum with incision noted and packing. Some swelling and erythema noted of area. Lab Results 06/14/25 04:39 06/14/25 04:39 Other Labs: Lab Results x24hrs 06/14/25 06/14/25 06/14/25 Range/Units 11:53 07:42 04:39 WBC 13.9 H (4.8-10.8) x10^3/uL RBC 4.24 L (4.70-6.10) 10^6/uL Hgb 12.4 L (14.0-18.0) g/dL Hct 35.6 L (42.0-52.0) % MCV 84.0 (80.0-94.0) fL MCH 29.2 (27.0-31.0) pg MCHC 34.8 (32.0-36.0) g/dL RDW 11.6 L (12.0-15.0) % Plt Count 253 (130-450) 10^3/uL MPV 10.0 (7.4-11.4) fL Neut # (Auto) 10.9 H (1.5-6.6) 10^3/uL Lymph # (Auto) 1.8 (1.5-3.5) 10^3/uL Lamb # (Auto) 1.0 (0.0-1.0) 10^3/uL Eos # (Auto) 0.1 (0.0-0.7) 10^3/uL Baso # (Auto) 0.1 (0.0-0.1) 10^3/uL Absolute Nucleated RBC 0.00 x10^3/uL Nucleated RBC % 0.0 /100WBC Sodium 134 L (135-145) mmol/L Potassium 3.7 (3.5-4.5) mmol/L Chloride 100 L (101-111) mmol/L Carbon Dioxide 27 (21-32) mmol/L Anion Gap 7.0 (6-13) BUN 10 (6-20) mg/dL Creatinine 0.7 (0.6-1.3) mg/dL Estimated GFR (MDRD) 128 (>89) Glucose 229 H (74-104) mg/dL POC Whole Bld Glucose 237 230 (70-100) mg/dL Estimat Average Glucose 329 H (70-100) mg/dL Hemoglobin A1c % 13.1 H (4.27-6.07) % Calcium 8.2 L (8.5-10.3) mg/dL 06/13/25 06/13/25 06/13/25 Range/Units 20:47 16:41 13:53 WBC (4.8-10.8) x10^3/uL RBC (4.70-6.10) 10^6/uL Hgb (14.0-18.0) g/dL Hct (42.0-52.0) % MCV (80.0-94.0) fL MCH (27.0-31.0) pg MCHC (32.0-36.0) g/dL RDW (12.0-15.0) % Plt Count (130-450) 10^3/uL MPV (7.4-11.4) fL Neut # (Auto) (1.5-6.6) 10^3/uL Lymph # (Auto) (1.5-3.5) 10^3/uL Lamb # (Auto) (0.0-1.0) 10^3/uL Eos # (Auto) (0.0-0.7) 10^3/uL Baso # (Auto) (0.0-0.1) 10^3/uL Absolute Nucleated RBC x10^3/uL Nucleated RBC % /100WBC Sodium (135-145) mmol/L Potassium (3.5-4.5) mmol/L Chloride (101-111) mmol/L Carbon Dioxide (21-32) mmol/L Anion Gap (6-13) BUN (6-20) mg/dL Creatinine (0.6-1.3) mg/dL Estimated GFR (MDRD) (>89) Glucose (74-104) mg/dL POC Whole Bld Glucose 219 280 217 (70-100) mg/dL Estimat Average Glucose (70-100) mg/dL Hemoglobin A1c % (4.27-6.07) % Calcium (8.5-10.3) mg/dL Assessment/Plan Problem List (1) 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 Pelvis CT shows moderate bilateral hydroceles and scrotal soft tissue swelling. This was followed by a ultrasound the testicle with Doppler which shows focus of heterogeneous echogenicity, 1.7 x 3.4 x 4.3 cm. Urology was consultedcompleted incision and drainage of the scrotum with findings of purulence and necrotic appearing brown tissue and peritoneum. For Meg's, continue Zosyn, clindamycin and vancomycin at this time. Plan for repeat I&D with urology tomorrow. Patient has been afebrile overnight. Leukocytosis has improved. Wound culture preliminary results show Gram negative patrica. (2) Uncontrolled diabetes mellitus: Impression: Patient had has not been taking his metformin. Was previously on insulin as well. Hemoglobin A1c of 13.1%. Continue sliding scale insulin, as well as insulin glargine 8 units at night. May need to uptitrate depending on glucose levels throughout the day. Social work consulted to assist with insurance needs. Qualifiers: Diabetes mellitus type: type 2 Glycemic state: with hyperglycemia Q ualified Code(s): E11.65 - Type 2 diabetes mellitus with hyperglycemia
--- NOTE | 2025-06-14 13:00 | PROVIDER PROGRESS NOTE ---
Subjective General Admit Date: 06/13/25 Procedure Date: 06/13/25 Post Op Days: 1 Procedure Performed: scrotal I&D and debridement of gangrenous tissue Other Other Information/Narrative: No acute events overnight. Afebrile. White count improved to 13. Wound Assessment Wound/Incisions: positive Other (2 incisions inspected. Anterior incision had tape removed. Tissue inside looks clean and pink and viable. Wet to dry dressing placed. Deeper incision with iodinated gauze inspected. Gauze removed. Again tissue looks okay. 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 Continue antibiotics. Improving white count. Needs social work for insurance coverage Will likely need prolonged healing with dressing changes at home in the future. Follow cultures. To OR tomorrow for repeat debridement. R/B/A discussed. Consent signed.
[2025-06-14] MEDS ORDERED: VANCOMYCIN 1 GM VIAL ONE (16:05)
[2025-06-14] MEDS ORDERED: VANCOMYCIN 500 MG VIAL ONE (16:05)
[2025-06-14] MEDS: MORPHINE 2 MG/ML CARPUJECT IVP STA (17:12)
[2025-06-15 05:35] LABS: HCT - HEMATOCRIT 35.8 % (42.0-52.0); HGB - HEMOGLOBIN 12.4 g/dL (14.0-18.0); MEAN PLATELET VOLUME 10.4 fL (7.4-11.4); PLT - PLATELET COUNT 277.0 10^3/uL (130-450); RED CELL DISTRIBUTION WIDTH 11.6 % (12.0-15.0)
[2025-06-15 05:53] LABS: BUN - BLOOD UREA NITROGEN 10.0 mg/dL (6-20); CARBON DIOXIDE - CO2 25.0 mmol/L (21-32); CREATININE 0.6 mg/dL (0.6-1.3); GFR - MDRD 152.0 (>89)
--- NOTE | 2025-06-15 08:17 | PROVIDER PROGRESS NOTE ---
Subjective General Admit Date: 06/13/25 Procedure Date: 06/13/25 Post Op Days: 2 Procedure Performed: scrotal I&D and debridement of gangrenous tissue Other Other Information/Narrative: No acute events overnight. Leukocytosis is resolved. Seen today at bedside. 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 NPO/IVF continue IV abx for now Wound Cx with Ecoli so far
--- NOTE | 2025-06-15 08:30 | PROVIDER PROGRESS NOTE ---
Subjective Subjective Subjective: Today, patient states that he feels much better. He still has significant pain around the scrotum, but it is improving. He has had no fevers or chills. He states that has been noncompliant with his medicationspreviously, he was on insulin. However, he does not have any insurance right now, and is unable to afford it. Current Medications Current Medications Current Medications: Current Medications Generic Name Dose Route Start Last Admin Trade Name Freq PRN Reason Stop Dose Admin Acetaminophen 650 mg 06/13/25 14:16 06/15/25 04:25 Acetaminophen 325 Mg Tablet PO 650 mg Q4HR PRN Administration Pain 1 to 4, or Fever Enoxaparin Sodium 40 mg 06/14/25 09:00 06/14/25 08:15 Enoxaparin 40 Mg/0.4 Ml Syringe SUBQ 40 mg DAILY DK Administration Vancomycin HCl 1 gm/ 500 mls @ 250 mls/hr 06/13/25 17:00 06/15/25 07:25 Vancomycin HCl 500 mg/ Sodium IV Infused Chloride Q12H DK Infusion Piperacillin Sod/Tazobactam 100 mls @ 25 mls/hr 06/13/25 17:00 06/15/25 04:22 Sod 3.375 gm/ Sodium Chloride IV Infused Q8H DK Infusion Clindamycin/Sodium Chloride 900 mg in 50 mls @ 50 mls/hr 06/13/25 22:00 06/15/25 07:09 Cleocin 900 Mg/50 Ml IV Infused Q8HR DK Infusion Sodium Chloride 500 mls @ 0 mls/hr 06/14/25 02:19 06/15/25 07:45 Normal Saline 0.9% IV 20 mls/hr Q24H PRN Infusion TKO RATE TKO Insulin Glargine-yfgn 10 unit 06/15/25 21:00 Insulin Glargine-Yfgn 300 Unit/3 Ml Pen SUBQ QPM DK Insulin Human Lispro 1 - 9 unit 06/14/25 08:00 06/14/25 21:17 Insulin Lispro 300 Unit/3 Ml Pen SUBQ 5 unit 0800,1200,1700,2100 DK Administration Protocol Insulin Human Lispro 5 unit 06/15/25 12:00 Insulin Lispro 300 Unit/3 Ml Pen SUBQ TIDWM [facility] Morphine Sulfate 4 mg 06/13/25 16:41 06/14/25 11:54 Morphine 2 Mg/Ml Carpuject IVP 4 mg Q12H PRN Administration Severe Pain (Level 7-10) Ondansetron HCl 4 mg 06/13/25 14:16 Ondansetron 4 Mg/2 Ml Vial IVP Q6HR PRN Nausea / Vomiting Oxycodone HCl 5 mg 06/13/25 14:16 06/15/25 00:20 Oxycodone 5 Mg Tablet PO 5 mg Q4HR PRN Administration Pain 8 to 10 Polyethylene Glycol 17 gm 06/15/25 09:00 Polyethylene Glycol 3350 17 Gm Packet PO DAILY DK Sodium Chloride 10 ml 06/13/25 14:16 Sodium Chloride Flush 0.9% 10 Ml Syringe IVP PRN PRN NEEDED PER PROVIDER ORDERS Sodium Chloride 10 ml 06/13/25 17:00 06/15/25 00:26 Sodium Chloride Flush 0.9% 10 Ml Syringe IVP 10 ml 0100,0900,1700 DK Administration Objective Vital Signs/Intake & Output Reviewed Vital Signs: Yes Vital Signs: Vital Signs x48h Temp Pulse Resp BP Pulse Ox 06/15/25 07:32 97.9 F 69 20 136/78 H 98 06/15/25 04:19 97.9 F 78 16 123/68 96 Intake & Output: Intake & Output 06/12/25 06/13/25 06/14/25 06/15/25 23:59 23:59 23:59 23:59 Intake Total 1600 / 1600 4890 / 4890 5000 / 5000 1187 / 1187 Output Total 4500 / 4500 800 / 800 Balance 1600 / 1600 4890 / 4890 500 / 500 387 / 387 Weight (kg) 107 kg 107 kg Objective General Appearance: positive No acute distress and Alert; negative Anxious Eyes Bilateral: positive Normal inspection, PERRL and EOMI ENT: positive ENT inspection nml, Pharynx nml and No signs of dehydration Neck: positive Nml inspection, Thyroid nml and No JVD Respiratory: positive Chest non-tender, No respiratory distress and Breath sounds nml; negative Wheezes, Rales or Rhonchi Cardiovascular: positive Regular rate & rhythm, No murmur and No gallop; negative Tachycardia or Systolic murmur Abdomen: positive Non-tender, No organomegaly and No distention; negative Guarding or Splenomegaly Back: positive Nml inspection; negative CVA tenderness (R) or CVA tenderness (L) Skin: positive Color nml, No rash, Warm and Dry Extremities: positive Non-tender, Full ROM, Nml appearance and No pedal edema Neurologic/Psychiatric: positive Oriented x3, Motor nml and Mood/affect nml Comments/Other: Right scrotum with incision noted and packing. Some swelling and erythema noted of area. Lab Results 06/15/25 05:07 06/15/25 05:07 Other Labs: Lab Results x24hrs 06/15/25 06/15/25 06/14/25 Range/Units 07:24 05:07 21:01 WBC 9.2 (4.8-10.8) x10^3/uL RBC 4.24 L (4.70-6.10) 10^6/uL Hgb 12.4 L (14.0-18.0) g/dL Hct 35.8 L (42.0-52.0) % MCV 84.4 (80.0-94.0) fL MCH 29.2 (27.0-31.0) pg MCHC 34.6 (32.0-36.0) g/dL RDW 11.6 L (12.0-15.0) % Plt Count 277 (130-450) 10^3/uL MPV 10.4 (7.4-11.4) fL Sodium 135 (135-145) mmol/L Potassium 3.7 (3.5-4.5) mmol/L Chloride 103 (101-111) mmol/L Carbon Dioxide 25 (21-32) mmol/L Anion Gap 7.0 (6-13) BUN 10 (6-20) mg/dL Creatinine 0.6 (0.6-1.3) mg/dL Estimated GFR (MDRD) 152 (>89) Glucose 231 H (74-104) mg/dL POC Whole Bld Glucose 207 269 (70-100) mg/dL Estimat Average Glucose (70-100) mg/dL Hemoglobin A1c % (4.27-6.07) % Calcium 7.8 L (8.5-10.3) mg/dL Magnesium 2.1 (1.7-2.3) mg/dL 06/14/25 06/14/25 06/14/25 Range/Units 16:41 11:53 04:39 WBC (4.8-10.8) x10^3/uL RBC (4.70-6.10) 10^6/uL Hgb (14.0-18.0) g/dL Hct (42.0-52.0) % MCV (80.0-94.0) fL MCH (27.0-31.0) pg MCHC (32.0-36.0) g/dL RDW (12.0-15.0) % Plt Count (130-450) 10^3/uL MPV (7.4-11.4) fL Sodium (135-145) mmol/L Potassium (3.5-4.5) mmol/L Chloride (101-111) mmol/L Carbon Dioxide (21-32) mmol/L Anion Gap (6-13) BUN (6-20) mg/dL Creatinine (0.6-1.3) mg/dL Estimated GFR (MDRD) (>89) Glucose (74-104) mg/dL POC Whole Bld Glucose 226 237 (70-100) mg/dL Estimat Average Glucose 329 H (70-100) mg/dL Hemoglobin A1c % 13.1 H (4.27-6.07) % Calcium (8.5-10.3) mg/dL Magnesium (1.7-2.3) mg/dL Assessment/Plan Problem List (1) 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 Pelvis CT shows moderate bilateral hydroceles and scrotal soft tissue swelling. This was followed by a ultrasound the testicle with Doppler which shows focus of heterogeneous echogenicity, 1.7 x 3.4 x 4.3 cm. Urology was consultedcompleted incision and drainage of the scrotum with findings of purulence and necrotic appearing brown tissue and peritoneum on 06/13, and 06/15. Plan for repeat I&D on 06/17. On I&D today, pocket of purulence was noted, as was some level of necrosis. For Meg's, continue Zosyn, clindamycin and vancomycin at this time. Patient has been afebrile overnight. Leukocytosis has improved. Wound culture shows E.Coli, walker-sensitive. MRSA swab is ordered. Will likely de- escalate antibiotics by tomorrow if patient contineus to be clinically improving. (2) Uncontrolled diabetes mellitus: Impression: Patient had has not been taking his metformin. Was previously on insulin as well. Hemoglobin A1c of 13.1%. Continue sliding scale insulin. Added mealtime inuslin 5 units TID. Have also increased insulin glargine to 10 units at night. May need to uptitrate depending on glucose levels throughout the day. Social work consulted to assist with insurance needs. Qualifiers: Diabetes mellitus type: type 2 Glycemic state: with hyperglycemia Q ualified Code(s): E11.65 - Type 2 diabetes mellitus with hyperglycemia
[2025-06-15] MEDS ORDERED: DEXAMETHASONE 4 MG/ML VIAL ONE (11:53)
[2025-06-15] MEDS ORDERED: LIDOCAINE-PF 2% 10 ML AMP SUBQ ONE (11:53)
[2025-06-15] MEDS ORDERED: ONDANSETRON 4 MG/2 ML VIAL ONE (11:53)
[2025-06-15] MEDS ORDERED: PROPOFOL 200 MG/20 ML VIAL IVP ONE (11:53)
[2025-06-15] MEDS ORDERED: fentaNYL 100 MCG/2 ML VIAL ONE ×2 (11:54→13:14)
[2025-06-15] MEDS ORDERED: MIDAZOLAM 2 MG/2 ML VIAL ONE (11:56)
--- NOTE | 2025-06-15 12:12 | ANESTHESIA PROCEDURE NOTE ---
Pre-Anesthesia VS, & Labs Diagnosis Surgical Diagnosis:: scrotal abscess Procedure Procedure: I and D scrotal abcess Vitals Vital Signs: Temp Pulse Resp BP Pulse Ox 36.6 C 69 20 136/78 H 98 06/15/25 07:32 06/15/25 07:32 06/15/25 07:32 06/15/25 07:32 06/15/25 07:32 NPO NPO: >8 hours Lab Results Current Lab Results: Laboratory Tests 06/15/25 11:43: POC Whole Bld Glucose 200 06/15/25 07:24: POC Whole Bld Glucose 207 06/15/25 05:07: WBC 9.2, RBC 4.24 L, Hgb 12.4 L, Hct 35.8 L, MCV 84.4, MCH 29.2, MCHC 34.6, RDW 11.6 L, Plt Count 277, MPV 10.4, Sodium 135, Potassium 3.7, Chloride 103, Carbon Dioxide 25, Anion Gap 7.0, BUN 10, Creatinine 0.6, Estimated GFR (MDRD) 152, Glucose 231 H, Calcium 7.8 L, Magnesium 2.1 06/14/25 21:01: POC Whole Bld Glucose 269 06/14/25 16:41: POC Whole Bld Glucose 226 06/14/25 11:53: POC Whole Bld Glucose 237 06/14/25 07:42: POC Whole Bld Glucose 230 06/14/25 04:39: WBC 13.9 H, RBC 4.24 L, Hgb 12.4 L, Hct 35.6 L, MCV 84.0, MCH 29.2, MCHC 34.8, RDW 11.6 L, Plt Count 253, MPV 10.0, Neut # (Auto) 10.9 H, Lymph # (Auto) 1.8, Finney # (Auto) 1.0, Eos # (Auto) 0.1, Baso # (Auto) 0.1, Absolute Nucleated RBC 0.00, Nucleated RBC % 0.0, Sodium 134 L, Potassium 3.7, C hloride 100 L, Carbon Dioxide 27, Anion Gap 7.0, BUN 10, Creatinine 0.7, Estimated GFR (MDRD) 128, Glucose 229 H, Estimat Average Glucose 329 H, H emoglobin A1c % 13.1 H, Calcium 8.2 L 06/13/25 20:47: POC Whole Bld Glucose 219 06/13/25 16:41: POC Whole Bld Glucose 280 06/13/25 13:53: POC Whole Bld Glucose 217 06/13/25 10:26: POC Whole Bld Glucose 220 06/13/25 05:49: WBC 19.3 H, RBC 4.71, Hgb 13.4 L, Hct 39.3 L, MCV 83.4, MCH 28.5, MCHC 34.1, RDW 11.4 L, Plt Count 278, MPV 10.5, Neut # (Auto) Not Reportable, Lymph # (Auto) Not Reportable, Finney # (Auto) Not Reportable, Eos # (Auto) Not Reportable, Baso # (Auto) Not Reportable, Absolute Nucleated RBC Not Reportable, Total Counted 100, Band Neuts % (Manual) 3, Reactive Lymphs % (Man) 3, Abnorm Lymph % (Manual) 0, Nucleated RBC % Not Reportable, Neutrophils # (Manual) 15.4 H, Lymphocytes # (Manual) 1.9, Monocytes # (Manual) 1.5 H, Eosinophils # (Manual) 0.4, Basophils # (Manual) 0.0, Differential Comment MANUAL DIFFERENTIAL, Manual Slide Review Indicated, Platelet Estimate NORMAL (130-450,000), RBC Morph Micro Appear 1+ ANISOCYTOSIS, Sodium 132 L, Potassium 4.2, Chloride 99 L, Carbon Dioxide 25, Anion Gap 8.0, BUN 10, Creatinine 0.8, Estimated GFR (MDRD) 109, Glucose 241 H, Calcium 8.7 06/12/25 23:14: POC Whole Bld Glucose 300 06/12/25 18:05: WBC 17.7 H, RBC 5.11, Hgb 14.4, Hct 42.6, MCV 83.4, MCH 28.2, MCHC 33.8, RDW 11.4 L, Plt Count 292, MPV 10.4, Neut # (Auto) 15.4 H, Lymph # (Auto) 1.1 L, Finney # (Auto) 1.1 H, Eos # (Auto) 0.0, Baso # (Auto) 0.0, Absolute Nucleated RBC 0.00, Nucleated RBC % 0.0, Sodium 129 L, Potassium 4.0, Chloride 93 L, Carbon Dioxide 25, Anion Gap 11.0, BUN 11, Creatinine 0.8, Estimated GFR (MDRD) 109, Glucose 371 H, Calcium 9.3, Total Bilirubin 0.6, AST 8 L, ALT 10, Alkaline Phosphatase 93, Total Protein 7.7, Albumin 3.9, Globulin 3.8, Albumin/Globulin Ratio 1.0 06/15/25 05:07 06/15/25 05:07 Meds/Allgy Home Medications Ambulatory Orders Medication Instructions Recorded Confirmed metformin 1,000 mg tablet 1,000 mg PO DAILY 06/12/25 0 06/13/25 Allergies Allergies Allergy/AdvReac Type Severity Reaction Status Date / Time No Known Drug Allergies Allergy Verified 06/13/25 18:09 PFSH Active Problems All Active Problems (Updated 06/14/25 @ 13:52 by Jenelle Rain MD) Uncontrolled diabetes mellitus (Acute) 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 (20 cigarettes=1 Pk): 1 Do you dip or chew tobacco?: No Do you vape?: No Living arrangement: At home Level: Independent Do you feel safe in your home environment?: Yes History of physical, verbal, emotional, or financial abuse?: No ETOH Use: None Substance Use: cannabis (any form) POLST Patient has POLST: No Anesthesia Exam (Expanded) Exam General: Alert, Oriented x3 and Cooperative Dental: WNL Mouth Opening: Greater than 4 Fingerbreadths Mallampati classification: III Respiratory: Lungs clear Cardiovascular: Regular rate Exam Exam Vital Signs: Vital Signs x48h Temp Pulse Resp BP Pulse Ox 06/15/25 07:32 36.6 C 69 20 136/78 H 98 06/15/25 04:19 36.6 C 78 16 123/68 96 Plan Problem List (1) 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 NPO/IVF continue IV abx for now Wound Cx with Ecoli so far Plan Anesthesia Type: General Consent for Procedure(s) Verified and Reviewed: Yes Code Status: Attempt Resuscitation ASA Classification ASA classification: 2-Mild systemic disease Is this case an emergency?: No
[2025-06-15] MEDS ORDERED: NALOXONE 0.4 MG/ML VIAL IVP PRN (12:30)
[2025-06-15] MEDS ORDERED: METOCLOPRAMIDE 10 MG/2 ML VIAL IVP PRN (12:30)
[2025-06-15] MEDS ORDERED: MORPHINE 2 MG/ML CARPUJECT IVP PRN ×2 (12:30→15:04)
[2025-06-15] MEDS ORDERED: ePHEDrine 50 MG/ML VIAL IVP PRN (12:30)
[2025-06-15] MEDS ORDERED: ATROPINE ABBOJECT 1 MG/10 ML SYRINGE IVP PRN (12:30)
[2025-06-15] MEDS ORDERED: ONDANSETRON 4 MG/2 ML VIAL IVP PRN (12:30)
[2025-06-15] MEDS ORDERED: KETOROLAC 30 MG/ML VIAL ONE (12:36)
[2025-06-15] MEDS ORDERED: ACETAMINOPHEN 1,000 MG/100 ML 1,000 MG/100 ML BAG IV ONE (12:36)
[2025-06-15] MEDS ORDERED: HYDROmorphone 1 MG/ML CARPUJECT ONE (12:50)
[2025-06-15] MEDS: HYDROmorphone 0.5 MG/0.5 ML SYRINGE IVP PRN (12:52)
[2025-06-15] MEDS: LACTATED RINGERS 1,000 ML IV SCH (12:55)
--- NOTE | 2025-06-15 13:03 | OPERATIVE REPORT ---
Operative Report General Admit Date: 06/13/25 Procedure Data: Operation Date: 06/17/25 07:45 Proposed Procedures p REPEAT DEBRIDEMENT(Not Applicable) - Radhames Pimentel MD Anesthesia Type General Pre-Op Diagnosis: Meg's gangrene Post Op Diagnosis: Meg's gangrene Procedure Note Estimated Blood Loss (ml): 10 Findings: new posterior pocket perineal connected anterior and posterior pockets Complications: none Other Other Information/Narrative: After informed consent was obtained the patient was brought to the OR and laid in the supine position. The patient was anesthetized per anesthesia protocols. His old dressing and packing was removed. He was then prepped with iodine and draped. A formal timeout was performed reconfirming the patient and procedure His wound was inspected and he was noted to have some necrotic debris in the anterior incision. This was extended laterally about 2 cm and we could dissect a portion of necrotic tissue connecting the anterior and posterior halves until there was a thick tissue of scrotal skin endarteritis about 4 or 5 cm in width connecting the 2 pockets. All necrotic tissue was debrided. We then inspected the inferior wound which did look quite good with some minimal exudative debris. However we could feel some induration and fluctuance in the perineal area and so we will we extended this incision another 2 cm inferiorly and opened up a pocket of purulence debris. The tissue did not appear necrotic. 1% lidocaine was used as local. We copiously irrigated this wound with saline. We then placed a iodinated saline soaked Kerlix underneath the skin bridge between the 2 wound pockets and packed it. We covered it with gauze and an ABD pad. This was taped in place This concluded the procedure the patient tolerated the procedure well. He was reversed from anesthesia and brought to the PACU without further incident. He will have a repeat procedure on Friday
--- NOTE | 2025-06-15 13:13 | ANESTHESIA POST OP EVALUATION ---
Anesthesia Post Eval Post Anesthesia Eval Vitals: Last Vital Signs Temp 36.4 C L 06/15/25 13:06 Pulse 66 06/15/25 13:06 Resp 15 06/15/25 13:06 BP 136/79 H 06/15/25 13:06 Pulse Ox 97 06/15/25 13:06 CV Function Including HR & BP: Stable Pain Control: Satisfactory Nausea & Vomiting: Negative Mental Status: Baseline Respiratory Status: Airway Patent Hydration Status: Satisfactory Anesthesia Complications: None
[2025-06-15] MEDS: fentaNYL 100 MCG/2 ML VIAL IVP PRN (13:15)
[2025-06-15] MEDS: INSULIN LISPRO 300 UNIT/3 ML PEN SUBQ SCH ×2 (13:49→21:32)
[2025-06-15] MEDS: INSULIN GLARGINE-YFGN 300 UNIT/3 ML PEN SUBQ SCH (21:31)
[2025-06-16 05:30] LABS: HCT - HEMATOCRIT 35.3 % (42.0-52.0); HGB - HEMOGLOBIN 11.8 g/dL (14.0-18.0); MEAN PLATELET VOLUME 9.9 fL (7.4-11.4); PLT - PLATELET COUNT 339.0 10^3/uL (130-450); RED CELL DISTRIBUTION WIDTH 11.6 % (12.0-15.0)
[2025-06-16 05:48] LABS: BUN - BLOOD UREA NITROGEN 11.0 mg/dL (6-20); CARBON DIOXIDE - CO2 23.0 mmol/L (21-32); CREATININE 0.8 mg/dL (0.6-1.3); GFR - MDRD 109.0 (>89)
[2025-06-16] MEDS: INSULIN GLARGINE-YFGN 300 UNIT/3 ML PEN SUBQ ONE (08:12)
--- NOTE | 2025-06-16 09:44 | PROVIDER PROGRESS NOTE ---
Subjective Subjective Subjective: Today, patient states that he feels much better. He still has significant pain around the scrotum, but it is improving. He has had no fevers or chills. He states that has been noncompliant with his medicationspreviously, he was on insulin. However, he does not have any insurance right now, and is unable to afford it. Current Medications Current Medications Current Medications: Current Medications Generic Name Dose Route Start Last Admin Trade Name Freq PRN Reason Stop Dose Admin Acetaminophen 650 mg 06/13/25 14:16 06/16/25 07:31 Acetaminophen 325 Mg Tablet PO 650 mg Q4HR PRN Administration Pain 1 to 4, or Fever Enoxaparin Sodium 40 mg 06/14/25 09:00 06/16/25 08:14 Enoxaparin 40 Mg/0.4 Ml Syringe SUBQ 40 mg DAILY DK Administration Piperacillin Sod/Tazobactam 100 mls @ 25 mls/hr 06/13/25 17:00 06/16/25 08:14 Sod 3.375 gm/ Sodium Chloride IV 25 mls/hr Q8H DK Administration Sodium Chloride 500 mls @ 0 mls/hr 06/14/25 02:19 06/16/25 05:40 Normal Saline 0.9% IV 0 mls/hr Q24H PRN Infusion TKO RATE TKO Insulin Glargine-yfgn 15 unit 06/16/25 21:00 Insulin Glargine-Yfgn 300 Unit/3 Ml Pen SUBQ QPM DK Insulin Human Lispro 5 unit 06/15/25 12:00 06/16/25 08:13 Insulin Lispro 300 Unit/3 Ml Pen SUBQ 5 unit TIDWM DK Administration Insulin Human Lispro 2 - 10 unit 06/15/25 21:19 06/16/25 08:13 Insulin Lispro 300 Unit/3 Ml Pen SUBQ 8 unit 0800,1200,1700,2100 DK Administration Protocol Morphine Sulfate 2 mg 06/15/25 15:04 Morphine 2 Mg/Ml Carpuject IVP Q6HR PRN Severe Pain (Level 7-10) Ondansetron HCl 4 mg 06/13/25 14:16 Ondansetron 4 Mg/2 Ml Vial IVP Q6HR PRN Nausea / Vomiting Oxycodone HCl 5 mg 06/13/25 14:16 06/16/25 05:10 Oxycodone 5 Mg Tablet PO 5 mg Q4HR PRN Administration Pain 8 to 10 Polyethylene Glycol 17 gm 06/15/25 09:00 06/16/25 08:14 Polyethylene Glycol 3350 17 Gm Packet PO Not Given DAILY DK Sodium Chloride 10 ml 06/13/25 14:16 Sodium Chloride Flush 0.9% 10 Ml Syringe IVP PRN PRN NEEDED PER PROVIDER ORDERS Sodium Chloride 10 ml 06/13/25 17:00 06/16/25 08:14 Sodium Chloride Flush 0.9% 10 Ml Syringe IVP 10 ml 0100,0900,1700 DK Administration Objective Vital Signs/Intake & Output Reviewed Vital Signs: Yes Vital Signs: Vital Signs x48h Temp Pulse Resp BP Pulse Ox 06/16/25 07:22 98.1 F 72 18 139/73 H 96 Intake & Output: Intake & Output 06/13/25 06/14/25 06/15/25 06/16/25 23:59 23:59 23:59 23:59 Intake Total 4890 / 4890 5000 / 5000 3827 / 3827 1682 / 1682 Output Total 4500 / 4500 3200 / 3200 2000 / 2000 Balance 4890 / 4890 500 / 500 627 / 627 -318 / -318 Weight (kg) 107 kg Objective General Appearance: positive No acute distress and Alert; negative Anxious Eyes Bilateral: positive Normal inspection, PERRL and EOMI ENT: positive ENT inspection nml, Pharynx nml and No signs of dehydration Neck: positive Nml inspection, Thyroid nml and No JVD Respiratory: positive Chest non-tender, No respiratory distress and Breath sounds nml; negative Wheezes, Rales or Rhonchi Cardiovascular: positive Regular rate & rhythm, No murmur and No gallop; negative Tachycardia or Systolic murmur Abdomen: positive Non-tender, No organomegaly and No distention; negative Guarding or Splenomegaly Back: positive Nml inspection; negative CVA tenderness (R) or CVA tenderness (L) Skin: positive Color nml, No rash, Warm and Dry Extremities: positive Non-tender, Full ROM, Nml appearance and No pedal edema Neurologic/Psychiatric: positive Oriented x3, Motor nml and Mood/affect nml Comments/Other: Right scrotum with incision noted and packing. Some swelling and erythema noted of area. Lab Results 06/16/25 04:59 06/16/25 04:59 Other Labs: Lab Results x24hrs 06/16/25 06/16/25 06/15/25 Range/Units 07:22 04:59 20:43 WBC 11.0 H (4.8-10.8) x10^3/uL RBC 4.20 L (4.70-6.10) 10^6/uL Hgb 11.8 L (14.0-18.0) g/dL Hct 35.3 L (42.0-52.0) % MCV 84.0 (80.0-94.0) fL MCH 28.1 (27.0-31.0) pg MCHC 33.4 (32.0-36.0) g/dL RDW 11.6 L (12.0-15.0) % Plt Count 339 (130-450) 10^3/uL MPV 9.9 (7.4-11.4) fL Sodium 134 L (135-145) mmol/L Potassium 3.9 (3.5-4.5) mmol/L Chloride 102 (101-111) mmol/L Carbon Dioxide 23 (21-32) mmol/L Anion Gap 9.0 (6-13) BUN 11 (6-20) mg/dL Creatinine 0.8 (0.6-1.3) mg/dL Estimated GFR (MDRD) 109 (>89) Glucose 260 H (74-104) mg/dL POC Whole Bld Glucose 288 312 (70-100) mg/dL Calcium 8.2 L (8.5-10.3) mg/dL Magnesium 2.2 (1.7-2.3) mg/dL Nasal Screen MRSA (PCR) (NEGATIVE) Last Dose Date UNK Last Dose Time UNK Random Vancomycin 5.6 ug/mL 06/15/25 06/15/25 06/15/25 Range/Units 16:50 14:40 12:44 WBC (4.8-10.8) x10^3/uL RBC (4.70-6.10) 10^6/uL Hgb (14.0-18.0) g/dL Hct (42.0-52.0) % MCV (80.0-94.0) fL MCH (27.0-31.0) pg MCHC (32.0-36.0) g/dL RDW (12.0-15.0) % Plt Count (130-450) 10^3/uL MPV (7.4-11.4) fL Sodium (135-145) mmol/L Potassium (3.5-4.5) mmol/L Chloride (101-111) mmol/L Carbon Dioxide (21-32) mmol/L Anion Gap (6-13) BUN (6-20) mg/dL Creatinine (0.6-1.3) mg/dL Estimated GFR (MDRD) (>89) Glucose (74-104) mg/dL POC Whole Bld Glucose 272 198 (70-100) mg/dL Calcium (8.5-10.3) mg/dL Magnesium (1.7-2.3) mg/dL Nasal Screen MRSA (PCR) NEGATIVE (NEGATIVE) Last Dose Date Last Dose Time Random Vancomycin ug/mL 06/15/25 Range/Units 11:43 WBC (4.8-10.8) x10^3/uL RBC (4.70-6.10) 10^6/uL Hgb (14.0-18.0) g/dL Hct (42.0-52.0) % MCV (80.0-94.0) fL MCH (27.0-31.0) pg MCHC (32.0-36.0) g/dL RDW (12.0-15.0) % Plt Count (130-450) 10^3/uL MPV (7.4-11.4) fL Sodium (135-145) mmol/L Potassium (3.5-4.5) mmol/L Chloride (101-111) mmol/L Carbon Dioxide (21-32) mmol/L Anion Gap (6-13) BUN (6-20) mg/dL Creatinine (0.6-1.3) mg/dL Estimated GFR (MDRD) (>89) Glucose (74-104) mg/dL POC Whole Bld Glucose 200 (70-100) mg/dL Calcium (8.5-10.3) mg/dL Magnesium (1.7-2.3) mg/dL Nasal Screen MRSA (PCR) (NEGATIVE) Last Dose Date Last Dose Time Random Vancomycin ug/mL Assessment/Plan Problem List (1) 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 Pelvis CT shows moderate bilateral hydroceles and scrotal soft tissue swelling. This was followed by a ultrasound the testicle with Doppler which shows focus of heterogeneous echogenicity, 1.7 x 3.4 x 4.3 cm. Urology was consultedcompleted incision and drainage of the scrotum with findings of purulence and necrotic appearing brown tissue and peritoneum on 06/13, and 06/15. Plan for repeat I&D on 06/17. For Meg's, patient was initially on Zosyn, clindamycin and vancomycin. MRSA swab negative. Wound culture shows E.Coli and gram positive cocci. Will stop clindamycin and vancomycin. Patient has been afebrile overnight. Leukocytosis has improved. Wound culture shows E.Coli, walker-sensitive. MRSA swab is ordered. Will likely de- escalate antibiotics by tomorrow if patient contineus to be clinically improving. (2) Uncontrolled diabetes mellitus: Impression: Patient had has not been taking his metformin. Was previously on insulin as well. Hemoglobin A1c of 13.1%. Continue sliding scale insulin. Added mealtime inuslin 5 units TID - increased to 8 units TID. Have also increased insulin glargine to 15 units at night. May need to uptitrate depending on glucose levels throughout the day. Social work consulted to assist with insurance needs. Qualifiers: Diabetes mellitus type: type 2 Glycemic state: with hyperglycemia Q ualified Code(s): E11.65 - Type 2 diabetes mellitus with hyperglycemia
[2025-06-16] MEDS: HYDROmorphone 1 MG/ML CARPUJECT IVP PRN (11:45)
[2025-06-16] MEDS: INSULIN LISPRO 300 UNIT/3 ML PEN SUBQ SCH (11:46)
--- NOTE | 2025-06-16 12:52 | PROVIDER PROGRESS NOTE ---
Subjective General Admit Date: 06/13/25 Procedure Date: 06/13/25 Post Op Days: 3 Procedure Performed: scrotal I&D and debridement of gangrenous tissue Other Other Information/Narrative: No acute events overnight. Afebrile. White count ~stable Wound Assessment Wound/Incisions: positive Other (2 incisions inspected. Anterior incision had tape removed. Tissue inside looks clean and pink and viable. Wet to dry dressing placed. Deeper incision with iodinated gauze inspected. Gauze removed. Again tissue looks okay. Repacked with wet to dry dressing) Exam Exam Vital Signs: Vital Signs x48h Temp Pulse Resp BP Pulse Ox 06/16/25 07:22 36.7 C 72 18 139/73 H 96 NAD RRR CTA b/l Dressing changed today. Old wet gauze removed. Some darkening of anterior incision inferior edge which will need debridement tomorrow. Otherwise wound is appearing healing well. 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 NPO/IVF at midnight Continue IV antibiotics for now but starting tomorrow after procedure will switch over to oral antibiotics likely Bactrim (2) Uncontrolled diabetes mellitus: Plan: Aggressive diabetes control, aim for less than 150 glucose Qualifiers: Diabetes mellitus type: type 2 Glycemic state: with hyperglycemia Qualified Code(s): E11.65 - Type 2 diabetes mellitus with hyperglycemia
[2025-06-16] MEDS: INSULIN GLARGINE-YFGN 300 UNIT/3 ML PEN SUBQ SCH (21:19)
[2025-06-17 05:38] LABS: HCT - HEMATOCRIT 37.0 % (42.0-52.0); HGB - HEMOGLOBIN 12.5 g/dL (14.0-18.0); MEAN PLATELET VOLUME 9.6 fL (7.4-11.4); PLT - PLATELET COUNT 371.0 10^3/uL (130-450); RED CELL DISTRIBUTION WIDTH 11.7 % (12.0-15.0)
[2025-06-17 05:56] LABS: BUN - BLOOD UREA NITROGEN 10.0 mg/dL (6-20); CARBON DIOXIDE - CO2 27.0 mmol/L (21-32); CREATININE 0.7 mg/dL (0.6-1.3); GFR - MDRD 128.0 (>89)
--- NOTE | 2025-06-17 07:04 | ANESTHESIA PROCEDURE NOTE ---
Pre-Anesthesia VS, & Labs Diagnosis Surgical Diagnosis:: scrotal abscess Procedure Procedure: repeat scrotal debridement Vitals Vital Signs: Temp Pulse Resp BP Pulse Ox 36.6 C 64 20 140/59 H 95 06/16/25 23:52 06/16/25 23:52 06/16/25 23:52 06/16/25 23:52 06/16/25 23:52 NPO NPO: >8 hours Lab Results Current Lab Results: Laboratory Tests 06/17/25 05:20: WBC 8.1, RBC 4.38 L, Hgb 12.5 L, Hct 37.0 L, MCV 84.5, MCH 28.5, MCHC 33.8, RDW 11.7 L, Plt Count 371, MPV 9.6, Sodium 138, Potassium 3.8, Chloride 104, Carbon Dioxide 27, Anion Gap 7.0, BUN 10, Creatinine 0.7, Estimated GFR (MDRD) 128, Glucose 218 H, Calcium 8.5, Magnesium 2.0 06/16/25 20:41: POC Whole Bld Glucose 170 06/16/25 16:37: POC Whole Bld Glucose 179 06/16/25 11:04: POC Whole Bld Glucose 253 06/16/25 07:22: POC Whole Bld Glucose 288 06/16/25 04:59: WBC 11.0 H, RBC 4.20 L, Hgb 11.8 L, Hct 35.3 L, MCV 84.0, MCH 28.1, MCHC 33.4, RDW 11.6 L, Plt Count 339, MPV 9.9, Sodium 134 L, Potassium 3.9, Chloride 102, Carbon Dioxide 23, Anion Gap 9.0, BUN 11, Creatinine 0.8, Estimated GFR (MDRD) 109, Glucose 260 H, Calcium 8.2 L, Magnesium 2.2, Last Dose Date UNK, Last Dose Time UNK, Random Vancomycin 5.6 06/15/25 20:43: POC Whole Bld Glucose 312 06/15/25 16:50: POC Whole Bld Glucose 272 06/15/25 12:44: POC Whole Bld Glucose 198 06/15/25 11:43: POC Whole Bld Glucose 200 06/15/25 07:24: POC Whole Bld Glucose 207 06/15/25 05:07: WBC 9.2, RBC 4.24 L, Hgb 12.4 L, Hct 35.8 L, MCV 84.4, MCH 29.2, MCHC 34.6, RDW 11.6 L, Plt Count 277, MPV 10.4, Sodium 135, Potassium 3.7, Chloride 103, Carbon Dioxide 25, Anion Gap 7.0, BUN 10, Creatinine 0.6, Estimated GFR (MDRD) 152, Glucose 231 H, Calcium 7.8 L, Magnesium 2.1 06/14/25 21:01: POC Whole Bld Glucose 269 06/14/25 16:41: POC Whole Bld Glucose 226 06/14/25 11:53: POC Whole Bld Glucose 237 06/14/25 07:42: POC Whole Bld Glucose 230 06/14/25 04:39: WBC 13.9 H, RBC 4.24 L, Hgb 12.4 L, Hct 35.6 L, MCV 84.0, MCH 29.2, MCHC 34.8, RDW 11.6 L, Plt Count 253, MPV 10.0, Neut # (Auto) 10.9 H, Lymph # (Auto) 1.8, Ward # (Auto) 1.0, Eos # (Auto) 0.1, Baso # (Auto) 0.1, Absolute Nucleated RBC 0.00, Nucleated RBC % 0.0, Sodium 134 L, Potassium 3.7, C hloride 100 L, Carbon Dioxide 27, Anion Gap 7.0, BUN 10, Creatinine 0.7, Estimated GFR (MDRD) 128, Glucose 229 H, Estimat Average Glucose 329 H, H emoglobin A1c % 13.1 H, Calcium 8.2 L 06/13/25 20:47: POC Whole Bld Glucose 219 06/13/25 16:41: POC Whole Bld Glucose 280 06/13/25 13:53: POC Whole Bld Glucose 217 06/13/25 10:26: POC Whole Bld Glucose 220 06/13/25 05:49: WBC 19.3 H, RBC 4.71, Hgb 13.4 L, Hct 39.3 L, MCV 83.4, MCH 28.5, MCHC 34.1, RDW 11.4 L, Plt Count 278, MPV 10.5, Neut # (Auto) Not Reportable, Lymph # (Auto) Not Reportable, Ward # (Auto) Not Reportable, Eos # (Auto) Not Reportable, Baso # (Auto) Not Reportable, Absolute Nucleated RBC Not Reportable, Total Counted 100, Band Neuts % (Manual) 3, Reactive Lymphs % (Man) 3, Abnorm Lymph % (Manual) 0, Nucleated RBC % Not Reportable, Neutrophils # (Manual) 15.4 H, Lymphocytes # (Manual) 1.9, Monocytes # (Manual) 1.5 H, Eosinophils # (Manual) 0.4, Basophils # (Manual) 0.0, Differential Comment MANUAL DIFFERENTIAL, Manual Slide Review Indicated, Platelet Estimate NORMAL (130-450,000), RBC Morph Micro Appear 1+ ANISOCYTOSIS, Sodium 132 L, Potassium 4.2, Chloride 99 L, Carbon Dioxide 25, Anion Gap 8.0, BUN 10, Creatinine 0.8, Estimated GFR (MDRD) 109, Glucose 241 H, Calcium 8.7 06/12/25 23:14: POC Whole Bld Glucose 300 06/12/25 18:05: WBC 17.7 H, RBC 5.11, Hgb 14.4, Hct 42.6, MCV 83.4, MCH 28.2, MCHC 33.8, RDW 11.4 L, Plt Count 292, MPV 10.4, Neut # (Auto) 15.4 H, Lymph # (Auto) 1.1 L, Ward # (Auto) 1.1 H, Eos # (Auto) 0.0, Baso # (Auto) 0.0, Absolute Nucleated RBC 0.00, Nucleated RBC % 0.0, Sodium 129 L, Potassium 4.0, Chloride 93 L, Carbon Dioxide 25, Anion Gap 11.0, BUN 11, Creatinine 0.8, Estimated GFR (MDRD) 109, Glucose 371 H, Calcium 9.3, Total Bilirubin 0.6, AST 8 L, ALT 10, Alkaline Phosphatase 93, Total Protein 7.7, Albumin 3.9, Globulin 3.8, Albumin/Globulin Ratio 1.0 06/17/25 05:20 06/17/25 05:20 Meds/Allgy Home Medications Ambulatory Orders Medication Instructions Recorded Confirmed metformin 1,000 mg tablet 1,000 mg PO DAILY 06/12/25 0 06/13/25 Allergies Allergies Allergy/AdvReac Type Severity Reaction Status Date / Time No Known Drug Allergies Allergy Verified 06/13/25 18:09 PFSH Active Problems All Active Problems (Updated 06/14/25 @ 13:52 by Jenelle Rain MD) Uncontrolled diabetes mellitus (Acute) 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 (20 cigarettes=1 Pk): 1 Do you dip or chew tobacco?: No Do you vape?: No Living arrangement: At home Level: Independent Do you feel safe in your home environment?: Yes History of physical, verbal, emotional, or financial abuse?: No ETOH Use: None Substance Use: cannabis (any form) POLST Patient has POLST: No Anesthesia Exam (Expanded) Exam Dental: WNL Mouth Opening: Greater than 4 Fingerbreadths Neck Mobility: Normal Mallampati classification: III Respiratory: Lungs clear Cardiovascular: Regular rate Exam Exam Vital Signs: Vital Signs x48h Temp Pulse Resp BP Pulse Ox 06/16/25 23:52 36.6 C 64 20 140/59 H 95 Plan Problem List (1) 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 NPO/IVF at midnight Continue IV antibiotics for now but starting tomorrow after procedure will switch over to oral antibiotics likely Bactrim (2) Uncontrolled diabetes mellitus: Plan: Aggressive diabetes control, aim for less than 150 glucose Qualifiers: Diabetes mellitus type: type 2 Glycemic state: with hyperglycemia Q ualified Code(s): E11.65 - Type 2 diabetes mellitus with hyperglycemia Plan Anesthesia Type: General Consent for Procedure(s) Verified and Reviewed: Yes Code Status: Attempt Resuscitation ASA Classification ASA classification: 2-Mild systemic disease Is this case an emergency?: No
[2025-06-17] MEDS ORDERED: NALOXONE 0.4 MG/ML VIAL IVP PRN (07:08)
[2025-06-17] MEDS ORDERED: ePHEDrine 50 MG/ML VIAL IVP PRN (07:08)
[2025-06-17] MEDS ORDERED: fentaNYL 100 MCG/2 ML VIAL IVP PRN (07:08)
[2025-06-17] MEDS ORDERED: MORPHINE 2 MG/ML CARPUJECT IVP PRN (07:08)
[2025-06-17] MEDS ORDERED: ONDANSETRON 4 MG/2 ML VIAL IVP PRN (07:08)
[2025-06-17] MEDS ORDERED: HYDROmorphone 0.5 MG/0.5 ML SYRINGE IVP PRN (07:08)
[2025-06-17] MEDS ORDERED: METOCLOPRAMIDE 10 MG/2 ML VIAL IVP PRN (07:08)
[2025-06-17] MEDS ORDERED: ATROPINE ABBOJECT 1 MG/10 ML SYRINGE IVP PRN (07:08)
[2025-06-17] MEDS ORDERED: BUPIVACAINE 0.5%-EPI 1:200000 PF 10 ML VIAL ONE (07:13)
[2025-06-17] MEDS ORDERED: PROPOFOL 200 MG/20 ML VIAL IVP ONE (07:22)
[2025-06-17] MEDS ORDERED: MIDAZOLAM 2 MG/2 ML VIAL ONE (07:22)
[2025-06-17] MEDS ORDERED: fentaNYL 100 MCG/2 ML VIAL ONE (07:23)
[2025-06-17] MEDS ORDERED: LACTATED RINGERS 1,000 ML IV PRN (07:24)
--- NOTE | 2025-06-17 07:25 | Preop H&P Attestation ---
Preop H&P Attestation Preop History & Physical Preop H&P Date: 06/16/25 History & Physical Reviewed and patient examined today.: No change -: RRR CTA b/l To OR for repeat debridement consent signed
[2025-06-17] MEDS ORDERED: LIDOCAINE-PF 2% 10 ML AMP SUBQ ONE (07:42)
[2025-06-17] MEDS ORDERED: ONDANSETRON 4 MG/2 ML VIAL ONE (07:46)
[2025-06-17] MEDS ORDERED: DEXAMETHASONE 4 MG/ML VIAL ONE (07:46)
[2025-06-17] MEDS ORDERED: ACETAMINOPHEN 1,000 MG/100 ML 1,000 MG/100 ML BAG IV ONE (07:47)
--- NOTE | 2025-06-17 08:06 | OPERATIVE REPORT ---
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 He was anesthetized per anesthesia protocols, and then had dressing removed and was prepped and draped in usual sterile fashion. A formal timeout was performed reconfirming the patient and procedure. He was noted to have dusky skin edges at inferior aspect of anterior and lateral aspect of posterior incision. 1% lidocaine was used for local. The wound edges were trimmed to cut back to healthy tissue, about a 0.5cm x3cm length on each. Spot cautery was used for hemostasis. No further abscesses palpated. Minimal necrotic debris at one edge was removed. Overall healing well. The wound was repacked with iodinated saline soaked gauze and a dry ABD pad and tape was placed The patient was brought to PACU He will start on 2 week course of bactrim. He will perform wet to dry dressings for the forseeable future and followup for wound care. He will aggressively work on his type 2 diabetes management.
[2025-06-17] MEDS: LACTATED RINGERS 1,000 ML IV SCH (08:12)
--- NOTE | 2025-06-17 08:34 | ANESTHESIA POST OP EVALUATION ---
Anesthesia Post Eval Post Anesthesia Eval Vitals: Last Vital Signs Temp 36.0 C L 06/17/25 08:15 Pulse 72 06/17/25 08:25 Resp 14 06/17/25 08:25 BP 160/88 H 06/17/25 08:25 Pulse Ox 98 06/17/25 08:25 CV Function Including HR & BP: Stable Pain Control: Satisfactory Nausea & Vomiting: Negative Mental Status: Baseline Respiratory Status: Airway Patent Hydration Status: Satisfactory Anesthesia Complications: None
--- NOTE | 2025-06-17 09:01 | Discharge Summary ---
"Discharge Summary Admit Date: 06/13/25 Discharge Date: 06/17/25 Discharging Provider: Dr. Jenelle Rain Primary Care Provider: none Code Status: Attempt Resuscitation Discharge Facility Name: Home DIAGNOSES Discharge Diagnoses with Status of Each Condition: Fourniers gangrenepatient presented with scrotal swelling, pain, recent course of oral cephalexin for possible abscess in the scrotal area. Ultrasound of the testicle with Doppler showed focus of heterogeneous echogenicity. Urology was consulted, and they completed 3 I&D's on 06/13, 06/15, 06/17. Some necrosis was noted. Initially, patient was on Zosyn, clindamycin and vancomycin. Wound culture has grown E. coli as well as bacteroids fragilis. Will be discharged home on Bactrim for 2 weeks, as well as Flagyl for 1 week. Will need regular wet-to-dry dressing changes. Will need regular follow-up with urology, monthly. Uncontrolled diabetes mellituspatient has not had insurance, and has had a difficult time refilling his insulin. Diabetes is largely uncontrolled. Continue insulin glargine 25 units at night, as well as insulin lispro 10 units with meals. Advised to keep a glucose log, make an appointment with his primary care provider and continue titration in the outpatient setting. HPI History of Present Illness: Per Jona Watkins: 34 yo M with pmhx of DM2 on metformin who presented with R scrotal pain and swelling. He stated it started as a pimple that popped, then grew and became very painful. He went to the walk in clinic on 06/10/25 and was prescribed cephalexin, which he took and stated it did not help. He came back to the ED on 06/12/25 and was diagnosed with R scrotal abscess. He was given pip-tazo and vancomycin. Urology (Dr. 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 Regarding his DM, he was diagnosed at age 20 with DM2. Used to weigh 330 lbs. Was on a basal-bolus insulin regimen 3 years ago that included lantus 10 units q day. Since then he had not had insurance and has been taking only metformin once daily. Never on SGLT2i. Denies any h/o skin infections, but did not a severe R ear infection and nasal polyps when he was a child. After arriving to the floor from PACU he feels great. Minimal pain. No n/v. No BM. Wants to eat. CONSULTS | PROCEDURES Consultations: Urology Procedures: Urology, I&D x 3, ultrasound testicle, CT A/P HOSPITAL COURSE Hospital Course: Patient is a 34-year-old male with a history of uncontrolled diabetes who presented with right scrotal pain and swelling. He described as a pimple that popped, and then became more more painful. Ultrasound was completed of the region, and it showed a focus of heterogeneous echogenicity. Urology was consulted, and they took him for an incision and drainage. There was concern for Beatris's gangrene, and he was started on Zosyn, clindamycin and vancomycin. He had repeat I&D's on 06/15 and 06/17, each with improving appearance of the abscess and necrosis. The wound culture has grown E. coli and Bacteroides fragilis. He will go home on 2 weeks of Bactrim, as well as a week of Flagyl. He will require wet-to-dry dressings, and very close follow-up with urology. He has been afebrile for many days, and has had normal white count as well. For his diabetes mellitus, will start him on 25 units long-acting at night, as well as 2 units of short acting with meals. He needs to follow-up with the primary care provider, as well as diabetic education. All of his medications were sent to his pharmacy. He was discharged home in stable condition with close follow-up required with primary care provider and urology. ALLERGIES Allergies Allergy/AdvReac Type Severity Reaction Status Date / Time No Known Drug Allergies Allergy Verified 06/13/25 18:09 MEDICATIONS Ambulatory Orders Medication Instructions Recorded Confirmed metformin 1,000 mg tablet 1,000 mg PO DAILY 06/12/25 0 06/13/25 insulin glargine 100 unit/mL (3 25 unit (0.25 mL) subc ut QPM #15 mL 06/17/25 mL) subcutaneous pen (Lantus Solostar U-100 Insulin) insulin lispro 100 unit/mL 10 unit (0.1 mL) subcut TID WM #15 06/17/25 subcutaneous pen (Humalog KwikPen mL (U-100) Insulin) lancets (Lancets, Super Thin) #200 ea 06/17/25 metronidazole 500 mg tablet 500 mg PO Q8H 7 days #21 t abs 06/17/25 oxycodone 5 mg tablet 5 mg PO Q8H PRN pain #14 tab s 06/17/25 pen needle, diabetic 29 gauge #100 ea 06/17/25 sulfamethoxazole 800 1 tab PO BID #28 tabs mg-trimethoprim 160 mg tablet PHYSICAL EXAM AT DISCHARGE Vital Signs: Vital Signs x48h Temp Pulse Pulse Resp BP BP Pulse Ox 06/17/25 12:36 97.9 F 75 20 130/76 95 06/17/25 11:14 97.9 F 60 20 150/81 H 98 06/17/25 09:55 97.9 F 57 L 16 141/78 H 96 06/17/25 09:19 97.7 F 61 16 137/73 H 96 06/17/25 08:45 97.3 F L 56 L 16 144/79 H 97 06/17/25 08:25 72 14 160/88 H 98 06/17/25 08:20 64 17 154/81 H 98 06/17/25 08:15 96.8 F L 58 L 12 140/83 H 97 06/17/25 08:10 60 11 L 146/85 H 99 06/17/25 08:05 60 12 141/77 H 99 06/17/25 08:00 97.0 F L 67 20 138/77 H 100 06/17/25 07:34 97.7 F 66 18 165/74 H 96 General Appearance: positive No acute distress and Alert; negative Anxious Eyes Bilateral: positive Normal inspection, PERRL and EOMI ENT: positive ENT inspection nml, Pharynx nml and No signs of dehydration Neck: positive Nml inspection, Thyroid nml and No JVD Respiratory: positive Chest non-tender, No respiratory distress and Breath sounds nml; negative Wheezes, Rales or Rhonchi Cardiovascular: positive Regular rate & rhythm, No murmur and No gallop; negative Tachycardia or Systolic murmur Abdomen: positive Non-tender, No organomegaly and No distention; negative Guarding or Splenomegaly Back: positive Nml inspection; negative CVA tenderness (R) or CVA tenderness (L) Skin: positive Color nml, No rash, Warm and Dry Extremities: positive Non-tender, Full ROM, Nml appearance and No pedal edema Neurologic/Psychiatric: positive Oriented x3, Motor nml and Mood/affect nml Comments/Other: Right scrotum with incision noted and packing. Some swelling and erythema noted of area. LABS 06/17/25 05:20 06/17/25 05:20 FOLLOW UP Follow Up: Follow up PCP. Follow up Urology. TIME SPENT Time Spent in Discharge (Minutes): 35 Discharge Plan Discharge Patient Disposition: Home, Self Care Condition: Stable Prescriptions: New sulfamethoxazole-trimethoprim 800-160 mg tablet 1 tab PO BID Qty: 28 0RF insulin lispro [Humalog KwikPen Insulin] 100 unit/mL Insulin Pen 10 unit subcut TIDWM Qty: 15 0RF (DME) lancets [Lancets, Super Thin] Misc See Rx Instructions .Route Qty: 200 0RF Rx Instructions: As directed insulin glargine [Lantus Solostar U-100 Insulin] 100 unit/mL (3 mL) insulin pen 25 unit subcut QPM Qty: 15 2RF (DME) pen needle, diabetic 29 gauge needle See Rx Instructions .Route Qty: 100 0RF Rx Instructions: As directed metronidazole 500 mg tablet 500 mg PO Q8H 7 Days Qty: 21 0RF oxycodone 5 mg tablet 5 mg PO Q8H PRN (Reason: pain) Qty: 14 0RF Continued metformin 1,000 mg tablet 1,000 mg PO DAILY Activity Restrictions: Activity as Tolerated Activity Restrictions/Additional Instructions: DIET - You may resume your normal diet if there is no nausea or vomiting. You may want to avoid spicy, greasy, or heavy foods today to minimize gas. - If nausea or vomiting occurs, don't eat or drink anything for one hour. Then start drinking small amounts of clear liquids. Later, add crackers, gradually building up to your usual diet. ACTIVITY INSTRUCTIONS * No sexual activity for one month * Recommend no vigorous activity until almost fully healed (about 3 months) * No exercise while healing (probably 3 months) * NO BATHING OR SOAKING IN WATER UNTIL CLEARED BY DR PANCHAL * OK to shower, let water run over your incisions DRESSING CARE * You have two incisions in your right scrotum. * Take gauze and moisten it with sterile saline (doesn't have to be soaking, just moist). Place this into your wound gently to fill the inside of your wound. As it reaches the skin, place dry dressings on top and secure with tape. * Change out these dressings daily and as needed * You will be performing this likely for months * When you remove old gauze it will have streaks of red, yellow or sometimes green/chance debris. This is normal. * Over time the wound will slowly shrink and close up. There will be a large scar but overall will seem mostly normal in the end * You will followup with Dr Panchal monthly to monitor wound healing DISCHARGE INSTRUCTIONS * Call for fever >100.4F * Call for new areas concerning for abscess or infection * MEDICATIONS * Take two weeks of antibiotics as prescribed. Call if you develop a rash or other atypical symptom. * GOOD CONTROL OF DIABETES IS CRITICAL FOR WOUND HEALING AND TO PREVENT RECURRENCE OF INFECTION ANESTHESIA PRECAUTIONS Anesthesia and medications given during surgery remain in your body up to 24 hours. This may slow reaction time and/or decrease coordination. FOR THE NEXT 24 HOURS: - Have a responsible person with you - Avoid any activity that requires you to be alert and coordinated - DO NOT DRIVE a motor vehicle for 24 hours or as long as you are taking opoid pain medication - Do not drink alcoholic beverages - Do not smoke unattended Patient Date Escort Date PAYTON Date Diet: Diabetic Print Language: Yoruba Patient Instructions: Gangrene Stand Alone Forms: PCP List Follow-up Care: Radhames Panchal MD [Provider Admit Priv/Credential, Urology] Referral Note: you will be contacted for followup in roughly one month"
--- NOTE | 2025-06-17 09:35 | ANESTHESIA POST OP EVALUATION ---
Anesthesia Post Eval Post Anesthesia Eval Vitals: Last Vital Signs Temp 36.5 C 06/17/25 09:19 Pulse 61 06/17/25 09:19 Resp 16 06/17/25 09:19 BP 137/73 H 06/17/25 09:19 Pulse Ox 96 06/17/25 09:19 CV Function Including HR & BP: Stable Pain Control: Satisfactory Nausea & Vomiting: Negative Mental Status: Baseline Respiratory Status: Airway Patent Hydration Status: Satisfactory Anesthesia Complications: None
[2025-06-17 16:10] VITALS: BP 151/77; TEMP 97.7; O2SAT 96
[2025-06-17] MEDS ORDERED: INSULIN GLARGINE-YFGN 300 UNIT/3 ML PEN SUBQ SCH (21:00)
== END 2025-06-17 16:09 | disposition home or self-care (01) | DRG 718 ==
LOC: ED 16:56 → SDS 06-13 08:20 → MS2 06-13 14:16
PROVIDERS: ADMIT Student in an Organized Health Care Education/Training Program; ATTEND Urology
DX: F17.210 Nicotine dependence, cigarettes, uncomplicated; E11.65 Type 2 diabetes mellitus with hyperglycemia; B96.20 Unspecified Escherichia coli [E. coli] as the cause of diseases classified elsewhere; Z91.120 Patient's intentional underdosing of medication regimen due to financial hardship; Z79.84 Long term (current) use of oral hypoglycemic drugs; N43.3 Hydrocele, unspecified; N49.3 Fournier gangrene; B96.6 Bacteroides fragilis [B. fragilis] as the cause of diseases classified elsewhere; T38.3X6A Underdosing of insulin and oral hypoglycemic [antidiabetic] drugs, initial encounter; N49.2 Inflammatory disorders of scrotum